=== PATIENT | female | born 1935 | race Caucasian/White ===

== ENCOUNTER 2017-09-06 18:22 | Emergency (ER) | payer OTHER, MEDICARE ==
--- NOTE | 2017-09-06 18:30 | PDOC ---
History of Present Illness - History of Present Illness Initial Comments: 09/06/17 18:49 The patient is a 82 year old female, with a significant past medical history of HTN, HLD, UTI's, hemorrhoids, sciatica, back, hip, & knee surgery, gastritis, and varicose veins, who presents to the emergency department with 3 days of right sided pelvic and buttox pain. Patient states that pain is exacerbated when walking and upon palpation and says it does not radiate to legs or back. Patient states she used a heating pad to try and relieve her pain. Patient denies any recent injury. She denies recent fevers, chills, headache or dizziness. She denies recent nausea, vomit, diarrhea or constipation. She denies recent dysuria, frequency, urgency or hematuria. She denies recent chest pain or shortness of breath. Allergies: NKDA Medications: see nursing notes 09/06/17 20:52 <Ruth Marcelino - Last Filed: 09/06/17 21:04> - History of Present Illness Initial Comments: Physical exam: Alert oriented well-developed well-nourished no acute distress cooperative Afebrile, vital signs normal HEENT clear Neck supple without bruit mass or nodes Chest clear CV regular without murmur rub or gallop Abdomen soft nontender without mass or organomegaly. Nondistended. Bowel sounds normal Neurological C2 to 12 intact. Strength full and symmetric. No focal sensory or motor deficits. Gait stable and unimpaired Skin clear, no rash, adequate turgor and wet mucous membranes Extremities: There is mild tenderness over the lateral hip joint on the right, and the pelvis in the buttock area. There is no erythema heat swelling or suggestion of effusion. Hip range of motion is full and it does not appear to be pain with external or internal rotation. Pulses are full and symmetric. No distal sensory or motor deficits. Impression: Although the patient reports no trauma, and inadvertent hip sprain is possible, as are flareup of arthritis. Plan: X-ray and further evaluation depending on results. Signed out to Dr. Zimmerman 7 PM pending x-ray results and further evaluation. <Laron Martinez - Last Filed: 09/08/17 07:33> - General Chief Complaint: Pain Stated Complaint: RIGHT HIP PAIN Time Seen by Provider: 09/06/17 18:23 Past History <Ruth Marcelino - Last Filed: 09/06/17 21:04> - Past Medical History Anemia: No Asthma: No Cancer: No Cardiac Disorders: No CVA: No COPD: No CHF: No Dementia: No Diabetes: No GI Disorders: Yes Disorders: No HTN: No Hypercholesterolemia: Yes Liver Disease: No Seizures: No Thyroid Disease: No - Surgical History Abdominal Surgery: No Appendectomy: No Cardiac Surgery: No Cholecystectomy: No Lung Surgery: No Neurologic Surgery: No Orthopedic Surgery: No - Immunization History Immunization Up to Date: Yes - Suicide/Smoking/Psychosocial Hx Smoking History: Never smoked Have you smoked in the past 12 months: No Hx Alcohol Use: No Drug/Substance Use Hx: No Substance Use Type: None Hx Substance Use Treatment: No <Laron Martinez - Last Filed: 09/08/17 07:33> - Past Medical History Allergies/Adverse Reactions: Allergies Allergy/AdvReac Type Severity Reaction Status Date / Time No Known Allergies Allergy Verified 09/06/17 18:24 Home Medications: Ambulatory Orders Alprazolam [Xanax] 0.25 mg PO BID 04/11/13 Atorvastatin Ca [Lipitor] 10 mg PO HS 04/11/13 Cholecalciferol (Vitamin D3) [Vitamin D3] 400 unit PO DAILY 04/11/13 Fish Oil/Fat No.8/Hrb Comb.137 [[place] 3-6-9 1,200 mg Softgel] 1,200 mg PO HS 02/16 Diphenhydramine HCl [Benadryl -] 25 mg PO Q6H PRN #20 capsule 03/14/16 Aspirin [ASA -] 81 mg PO DAILY 07/08/16 Sertraline HCl [Zoloft -] 25 mg PO DAILY 07/08/16 Amlodipine Besylate 5 mg PO DAILY 09/06/17 Hydrochlorothiazide [Hctz -] 12.5 mg PO DAILY 09/06/17 Hydroxyzine HCl [Atarax -] 25 mg PO BID 09/06/17 Meloxicam 15 mg PO DAILY 09/06/17 Omeprazole 20 mg PO BID 09/06/17 Tizanidine HCl [Zanaflex] 2 mg PO BID 09/06/17 Hyoscyamine Odt [Levsin Odt -] 0.125 mg PO DAILY PRN #7 tab.rapdis 09/07/17 Review of Systems - Review of Systems Comments:: 09/06/17 18:54 CONSTITUTIONAL: Absent: fever, chills, diaphoresis, generalized weakness, malaise, loss of appetite HEENT: Absent: rhinorrhea, nasal congestion, throat pain, throat swelling, difficulty swallowing, mouth swelling, ear pain, eye pain, visual Changes CARDIOVASCULAR: Absent: chest pain, syncope, palpitations, irregular heart rate, lightheadedness , peripheral edema RESPIRATORY: Absent: cough, shortness of breath, dyspnea with exertion, orthopnea, wheezing, stridor, hemoptysis GASTROINTESTINAL: Absent: abdominal pain, abdominal distension, nausea, vomiting, diarrhea, constipation, melena, hematochezia GENITOURINARY: Absent: dysuria, frequency, urgency, hesitancy, hematuria, flank pain, genital pain MUSCULOSKELETAL: Present right illiac crest and buttox pain. Absent: myalgia, SKIN: Absent: rash, itching, pallor HEMATOLOGIC/IMMUNOLOGIC: Absent: easy bleeding, easy bruising, lymphadenopathy, frequent infections ENDOCRINE: Absent: unexplained weight gain, unexplained weight loss, heat intolerance, cold intolerance NEUROLOGIC: Absent: headache, focal weakness or paresthesias, dizziness, unsteady gait, seizure, mental status changes, bladder or bowel incontinence PSYCHIATRIC: Absent: anxiety, depression, suicidal or homicidal ideation, hallucinations. 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 Prosthetic components articulate in the expected fashion. No acute fracture or dislocation is seen. Diffuse bony demineralization. <Ruth Marcelino - Last Filed: 09/06/17 21:04> - LABORATORY CBC & Chemistry Diagram: 09/06/17 19:10 09/06/17 19:10 <Laron Martinez - Last Filed: 09/08/17 07:33> *DC/Admit/Observation/Transfer - Attestations Scribe Attestion: 09/06/17 18:54 Documentation prepared by Ruth Marcelino, acting as medical reception specialist for Laron Ontiveros MD. <Ruth Marcelino - Last Filed: 09/06/17 21:04> <Laron Martinez - Last Filed: 09/08/17 07:33> Diagnosis at time of Disposition: Lower abdominal pain, Right hip pain - Discharge Dispostion Disposition: HOME Condition at time of disposition: Stable - Prescriptions Prescriptions: Hyoscyamine Odt [Levsin Odt -] 0.125 mg PO DAILY PRN #7 tab.rapdis PRN Reason: Moderate Pain - Referrals Referrals: Rosa Grijalva MD [Staff Physician] - 24 hours Han Ovalle [Non Staff, Medical] - Call tomorrow - Patient Instructions Printed Discharge Instructions: Irritable Bowel Syndrome Additional Instructions: Follow-up tomorrow with as previously scheduled Call Dr. Crawford's office tomorrow and make appointment for follow-up Tylenol as needed for pain Levsin ODT daily as needed for abdominal cramping
[2017-09-06 18:34] VITALS: TEMP 98; BMI 29.2
[2017-09-06 18:58] LABS: PH,URINE 5.5 (4.5-8); URINE APPEARANCE Clear; URINE BILIRUBIN Negative (NEGATIVE); URINE BLOOD Negative (NEGATIVE); URINE GLUCOSE (UA) Negative (NEGATIVE); URINE KETONE Negative (NEGATIVE); URINE NITRITE Negative (NEGATIVE); URINE PROTEIN Negative (NEGATIVE); URINE UROBILINOGEN 0.2 (0.2-1.0)
--- NOTE | 2017-09-06 19:10 | PDOC ---
*Physical Exam - Vital Signs Last Vital Signs Temp Pulse Resp BP Pulse Ox 98 F 95 H 20 149/91 100 09/06/17 18:23 09/06/17 18:23 09/06/17 18:23 09/06/17 18:23 09/06/17 18:23 ED Treatment Course - LABORATORY CBC & Chemistry Diagram: 09/06/17 19:10 09/06/17 19:10 Progress Note - Progress Note Progress Note: Care of this patient received from Dr. Bridges. Laboratory evaluation is essentially normal without evidence of leukocytosis, anemia or other abnormality of the CBC; likewise, chemistry profile shows no acute abnormality. Urinalysis shows small amount of red blood cells/white blood cells but also contains epithelial cells and mucus. No bacteria seen on the microscopic analysis. Right hip x-ray preliminary reading by Imaging professor of communication shows no evidence of fracture/dislocation; hardware appears intact and no other acute process present. Patient reexamined: She has some tenderness persistent in the right lower quadrant of the abdomen, cephalad to the right hip. Although this would be very atypical presentation of acute appendicitis or diverticulitis, since she is still in pain, CT of the abdomen and pelvis (noncontrast) was performed. No evidence of hydronephrosis/ureteronephrosis, ureteral stones, diverticulitis or appendicitis is present. No other significant abnormality seen on the CT scan. Results discussed with the patient. The patient states that the pain that she feels in her lower abdomen comes in waves and is "cramp-like". Because it was possible that she has irritable bowel syndrome (patient states that she is been under a tremendous amount of stress in recent months), she was given Levsin ODT 0.125 mg. Patient had some relief in her abdominal symptoms after this medication although she still had some hip pain. Patient has a history of gastritis and cannot take nonsteroidal anti-inflammatory medications. Patient will be discharged for follow-up tomorrow (already scheduled) with her digital media analyst, Dr. Grijalva. She should call her orthopedist, tomorrow to arrange follow-up for further evaluation of her right Hip pain *DC/Admit/Observation/Transfer Diagnosis at time of Disposition: Lower abdominal pain, Right hip pain - Discharge Dispostion Disposition: HOME Condition at time of disposition: Stable - Prescriptions Prescriptions: Hyoscyamine Odt [Levsin Odt -] 0.125 mg PO DAILY PRN #7 tab.rapdis PRN Reason: Moderate Pain - Referrals Referrals: Rosa Grijalva MD [Staff Physician] - 24 hours Han Ovalle [Non Staff, Medical] - Call tomorrow - Patient Instructions Printed Discharge Instructions: Irritable Bowel Syndrome Additional Instructions: Follow-up tomorrow with as previously scheduled Call Dr. rCawford's office tomorrow and make appointment for follow-up Tylenol as needed for pain Levsin ODT daily as needed for abdominal cramping - Post Discharge Activity
[2017-09-06 19:11] LABS: URINE COLOR YELLOW
[2017-09-06 19:25] LABS: BASO % 0.7 % (0-2.0); EOS % 0.8 % (0-4.5); HEMATOCRIT 43.7 % (32.4-45.2); HEMOGLOBIN 14.4 GM/dl (10.7-15.3); LYMPH % 17.8 % (8-40); MCH 31.3 pg (25.7-33.7); MEAN PLT VOLUME 9.5 fl (7.5-11.1); MONO % 6.6 % (3.8-10.2); NEUT % 74.1 % (42.8-82.8); PLATELET COUNT 252 K/MM3 (134-434); RDW 12.6 % (11.6-15.6); WHITE BLOOD COUNT 6.9 K/mm3 (4.0-10.8)
[2017-09-06 19:41] LABS: ALBUMIN 4.2 g/dl (3.5-5.0); ALK PHOS 80 U/L (32-92); ANION GAP 8 (8-16); BILIRUBIN,TOTAL 0.6 mg/dl (0.2-1.0); BLOOD UREA NITROGEN 14 mg/dl (7-18); CALCIUM 9.7 mg/dl (8.4-10.2); CHLORIDE 104 mmol/L (98-107); CO2 26 mmol/L (22-28); CREATININE 0.8 mg/dl (0.6-1.3); GLUCOSE,RANDOM 96 mg/dl (74-106); POTASSIUM 4.3 mmol/L (3.5-5.1); SGOT/AST 32 U/L (10-42); SGPT/ALT 25 U/L (10-40); SODIUM 138 mmol/L (136-145)
[2017-09-06 20:12] LABS: URINE MUCUS 1+; URINE RBC 0-3 /hpf (0-3)
[2017-09-06] MEDS ORDERED: ACETAMINOPHEN 325 MG TABLET (FP) PO ONE (20:55)
[2017-09-06] MEDS ORDERED: ACETAMINOPHEN 325 MG TABLET (FP) ONE (20:57)
[2017-09-06] MEDS ORDERED: HYOSCYAMINE SULFATE 0.125 MG *ODT ONE (23:53)
[2017-09-07 00:21] VITALS: BP 114/59; PULSE 84
== END 2017-09-07 00:27 | disposition home or self-care (01) ==
LOC: FER 18:22
DX: M25.551 Pain in right hip (principal); R10.30 Lower abdominal pain, unspecified; I10 Essential (primary) hypertension; E78.5 Hyperlipidemia, unspecified
CPT/HCPCS: 36415; 73523-TC; 74176; 80053; 81003; 81015; 85025; 87086; 99282-25

== ENCOUNTER 2018-08-19 00:02 | Emergency (ER) | payer OTHER, MEDICARE ==
[2018-08-19] MEDS ORDERED: ACETAMINOPHEN 325 MG TABLET (FP) PO ONE (00:07)
--- NOTE | 2018-08-19 00:07 | PDOC ---
History of Present Illness - General Chief Complaint: Injury Stated Complaint: INJURY Time Seen by Provider: 08/19/18 00:07 - History of Present Illness Initial Comments: 08/19/18 03:14 trip and fall landed on L knee and L buttock Timing/Duration: 1 hour, 1-3 hours Severity: moderate Modifying Factors: improves with: movement, rest Associated Symptoms: denies: chest pain, fever/chills, headaches, shortness of breath Past History - Past Medical History Allergies/Adverse Reactions: Allergies Allergy/AdvReac Type Severity Reaction Status Date / Time No Known Allergies Allergy Verified 03/19/18 00:27 Home Medications: Ambulatory Orders Alprazolam [Xanax] 0.25 mg PO BID 04/11/13 Atorvastatin Ca [Lipitor] 10 mg PO HS 04/11/13 Cholecalciferol (Vitamin D3) [Vitamin D3] 400 unit PO DAILY 04/11/13 Fish Oil/Fat No.8/Hrb Comb.137 [[place] 3-6-9 1,200 mg Softgel] 1,200 mg PO HS 02/16 Diphenhydramine HCl [Benadryl -] 25 mg PO Q6H PRN #20 capsule 03/14/16 Aspirin [ASA -] 81 mg PO DAILY 07/08/16 Sertraline HCl [Zoloft -] 25 mg PO DAILY 07/08/16 Amlodipine Besylate 5 mg PO DAILY 09/06/17 Hydrochlorothiazide [Hctz -] 12.5 mg PO DAILY 09/06/17 Meloxicam 15 mg PO DAILY 09/06/17 Omeprazole 20 mg PO BID 09/06/17 Tizanidine HCl [Zanaflex] 2 mg PO BID 09/06/17 hydrOXYzine HCL [Atarax -] 25 mg PO BID 09/06/17 Hyoscyamine Odt [Levsin Odt -] 0.125 mg PO DAILY PRN #7 tab.rapdis 09/07/17 Diphenhydramine HCl [Benadryl -] 25 mg PO Q8H #21 capsule 03/19/18 Anemia: No Asthma: No Cancer: No Cardiac Disorders: No CVA: No COPD: No CHF: No DVT: No Dementia: No Diabetes: No GI Disorders: Yes Disorders: No HTN: No Hypercholesterolemia: Yes Liver Disease: No Psychiatric Problems: Yes (ANXIETY) Seizures: No Thyroid Disease: No - Surgical History Abdominal Surgery: No Appendectomy: No Cardiac Surgery: No Cholecystectomy: No Lung Surgery: No Neurologic Surgery: No Orthopedic Surgery: No - Immunization History Immunization Up to Date: Yes - Suicide/Smoking/Psychosocial Hx Smoking History: Never smoked Have you smoked in the past 12 months: No Hx Alcohol Use: No Drug/Substance Use Hx: No Substance Use Type: None Hx Substance Use Treatment: No Review of Systems - Review of Systems All Other Systems: Reviewed and Negative *Physical Exam - Physical Exam General Appearance: Yes: Nourished, Appropriately Dressed HEENT: positive: Normal Voice Neck: negative: Tender Respiratory/Chest: positive: Lungs Clear Cardiovascular: positive: Regular Rhythm Gastrointestinal/Abdominal: negative: Tender, Distended Lymphatic: negative: Adenopathy Musculoskeletal: positive: Normal Inspection. negative: Decreased Range of Motion Extremity: positive: Other (tender over L buttock; no hip/ knee tenderness; + tender 2nd toe; nl gait) Integumentary: positive: Normal Color Neurologic: positive: Fully Oriented, Motor Strength 5/5 Medical Decision Making - Medical Decision Making 08/19/18 03:16 plain films: no fx, as read by me, referred to radiology for definitive read a/p msk pain s/p t+f analgesia *DC/Admit/Observation/Transfer Diagnosis at time of Disposition: Contusion Qualifiers: Encounter type: initial encounter Contusion area: pelvic area Qualified Code(s) : S30.0XXA - Contusion of lower back and pelvis, initial encounter - Discharge Dispostion Disposition: HOME Condition at time of disposition: Stable - Referrals - Patient Instructions Printed Discharge Instructions: How to Prevent Falls - Post Discharge Activity
[2018-08-19 00:08] VITALS: BP 152/87; PULSE 89; TEMP 97.7
[2018-08-19] MEDS ORDERED: ACETAMINOPHEN 325 MG TABLET (FP) ONE (00:10)
[2018-08-19 00:14] VITALS: BMI 27.8
[2018-08-19] MEDS ORDERED: oxyCODONE HCL 5 MG TABLET PO ONE (01:15)
== END 2018-08-19 01:21 | disposition home or self-care (01) ==
LOC: FER 00:02
DX: S30.0XXA Contusion of lower back and pelvis, initial encounter (principal); W01.0XXA Fall on same level from slipping, tripping and stumbling without subsequent striking against object, initial encounter; Y93.89 Activity, other specified; Y92.89 Other specified places as the place of occurrence of the external cause; F41.9 Anxiety disorder, unspecified; E78.00 Pure hypercholesterolemia, unspecified
CPT/HCPCS: 73523-TC-FY; 73560-TC-LT-FY; 73630-TC-LT; 99281-25

== ENCOUNTER 2018-08-22 13:59 | Emergency (ER) | payer OTHER, MEDICARE ==
[2018-08-22 14:19] VITALS: BP 137/83; PULSE 57; TEMP 97.6; BMI 25.8
--- NOTE | 2018-08-22 15:21 | PDOC ---
History of Present Illness - General Chief Complaint: Injury Stated Complaint: NOSE INJURY Time Seen by Provider: 08/22/18 15:11 - History of Present Illness Initial Comments: 08/22/18 15:19 83-year-old female with multiple comorbidities presents for evaluation of. She states she was given a cortisone shot in her left hip at her orthopedic surgeon' s office went to get up and hit her face into a counter she had bleeding from her nose which was controlled by pressure and packing and sent to the emergency room by ambulance for further evaluation. She denies headache nausea postinjury vomiting or visual changes was no loss of consciousness Past History - Past Medical History Allergies/Adverse Reactions: Allergies Allergy/AdvReac Type Severity Reaction Status Date / Time No Known Allergies Allergy Verified 03/19/18 00:27 Home Medications: Ambulatory Orders Alprazolam [Xanax] 0.25 mg PO BID 04/11/13 Atorvastatin Ca [Lipitor] 10 mg PO HS 04/11/13 Cholecalciferol (Vitamin D3) [Vitamin D3] 400 unit PO DAILY 04/11/13 Fish Oil/Fat No.8/Hrb Comb.137 [[place] 3-6-9 1,200 mg Softgel] 1,200 mg PO HS 02/16 Aspirin [ASA -] 81 mg PO DAILY 07/08/16 Sertraline HCl [Zoloft -] 25 mg PO DAILY 07/08/16 Amlodipine Besylate 5 mg PO DAILY 09/06/17 Hydrochlorothiazide [Hctz -] 12.5 mg PO DAILY 09/06/17 Tizanidine HCl [Zanaflex] 2 mg PO BID 09/06/17 hydrOXYzine HCL [Atarax -] 25 mg PO BID 09/06/17 Hyoscyamine Odt [Levsin Odt -] 0.125 mg PO DAILY PRN #7 tab.rapdis 09/07/17 Anemia: No Asthma: No Cancer: No Cardiac Disorders: No CVA: No COPD: No CHF: No DVT: No Dementia: No Diabetes: No GI Disorders: Yes Disorders: No HTN: No Hypercholesterolemia: Yes Liver Disease: No Psychiatric Problems: Yes (ANXIETY) Seizures: No Thyroid Disease: No - Surgical History Abdominal Surgery: No Appendectomy: No Cardiac Surgery: No Cholecystectomy: No Lung Surgery: No Neurologic Surgery: No Orthopedic Surgery: No - Immunization History Immunization Up to Date: Yes - Suicide/Smoking/Psychosocial Hx Smoking History: Never smoked Have you smoked in the past 12 months: No Information on smoking cessation initiated: No Hx Alcohol Use: No Drug/Substance Use Hx: No Substance Use Type: None Hx Substance Use Treatment: No Review of Systems - Review of Systems HEENTM: Yes: Nose Pain *Physical Exam - Vital Signs Last Vital Signs Temp Pulse Resp BP Pulse Ox 97.6 F 57 L 16 137/83 100 08/22/18 14:17 08/22/18 14:17 08/22/18 14:17 08/22/18 14:17 08/22/18 14:17 - Physical Exam Comments: 08/22/18 15:20 HEAD: NC/AT EYES: Conjuntiva clear Ears: Canals and TM's normal NOSE: Dried blood in naris THROAT: Moist mucous membrances, oral pharanx clear, uvula midline NECK: Supple without adenopathy CARDIAC: S1 S2 LUNGS: CTA Full and Equal breath sounds ABDOMEN: Soft NT ND MS: Full ROM in all joints without edema NEUROLOGIC: No gross sensory or motor deficits, NVID SKIN: Normal color and temperature no lesions or rashes Moderate Sedation - Procedure Monitoring Vital Signs: Procedure Monitoring Vital Signs Temperature 97.6 F 08/22/18 14:17 Pulse Rate 57 L 08/22/18 14:17 Respiratory Rate 16 08/22/18 14:17 Blood Pressure 137/83 08/22/18 14:17 O2 Sat by Pulse Oximetry (%) 100 08/22/18 14:17 ED Treatment Course - RADIOLOGY Radiology Studies Ordered: Category Date Time Status FACIAL BONES CT W/O CONTRAST [CT] Stat CT Scan 08/22/18 15:[address] WITHOUT CONTRAST [CT] Stat CT Scan 08/22/18 15:15 Ordered Medical Decision Making - Medical Decision Making 08/22/18 15:[address] head and facial bones, I explained 2nd fall in 1 week, on daily ASA, pt will have to sign out AMA discussed head bleed and potential adverse outcomes *DC/Admit/Observation/Transfer Diagnosis at time of Disposition: Contusion, nose - Discharge Dispostion Disposition: AGAINST MEDICAL ADVICE Condition at time of disposition: Stable - Referrals Referrals: Jose Stephenson MD [Primary Care Provider] - Vinay Holt MD [Staff Physician] - - Patient Instructions Printed Discharge Instructions: Contusion Additional Instructions: I did not appreciate a fracture under nasal x-ray today. I did recommend a CAT scan of your nasal bones and facial bones as well as her head. The reason I recommended a CAT scan of her head is because you are 83 years old, he take daily aspirin and this is her second fall in the last week. It's important to look at your brain to make sure there are no injuries that can be missed. A nasal contusion is distracting injury which can take away from a head trauma. You have refused a CAT scan, therefore you are signing out AGAINST MEDICAL ADVICE. Please return to the emergency room should you have any nausea vomiting or headaches. Please follow up with plastic surgery for further evaluation and treatment options of your nasal contusion. I cannot advise you to continue the aspirin because I am unsure what is going on inside her head without the CAT scan. - Post Discharge Activity
== END 2018-08-22 17:08 | disposition left against medical advice (07) ==
LOC: JERFT 13:59
DX: S00.33XA Contusion of nose, initial encounter (principal); W18.39XA Other fall on same level, initial encounter; Y93.89 Activity, other specified; Y92.531 Health care provider office as the place of occurrence of the external cause; E78.00 Pure hypercholesterolemia, unspecified; F41.9 Anxiety disorder, unspecified; K92.9 Disease of digestive system, unspecified
CPT/HCPCS: 70160-TC-FY; 70450-TC; 70486-TC; 99281-25

== ENCOUNTER 2020-12-19 10:55 | Inpatient (IN) | payer OTHER ==
[2020-12-19] MEDS ORDERED: MAG HYDROX/AL HYDROX/SIMETH 30 ML UNIT-DOSE CUP PO ONE (12:15)
[2020-12-19] MEDS ORDERED: FAMOTIDINE 20 MG/50 ML IVPB 20 MG/50 ML MG IVPB ONE ×2 (12:15→12:34)
[2020-12-19] MEDS ORDERED: MAG HYDROX/AL HYDROX/SIMETH 30 ML UNIT-DOSE CUP ONE (12:33)
[2020-12-19 12:45] LABS: BASO % 0.7 % (0-2.0); EOS % 0.4 % (0-4.5); HEMATOCRIT 41.7 % (32.4-45.2); HEMOGLOBIN 14.7 GM/dL (10.7-15.3); LYMPH % 18.4 % (8-40); MCH 33.3 pg (25.7-33.7); MCHC 35.3 g/dl (32.0-36.0); MEAN CELL VOLUME 94.4 fl (80-96); MEAN PLT VOLUME 8.9 fl (7.5-11.1); MONO % 6.5 % (3.8-10.2); PLATELET COUNT 273 K/MM3 (134-434); RBC 4.42 M/mm3 (3.60-5.2); RDW 14.3 % (11.6-15.6); WHITE BLOOD COUNT 8.7 K/mm3 (4.0-10.0)
[2020-12-19 13:08] LABS: CHLORIDE 102 mmol/L (98-107); SODIUM 139 mmol/L (136-145)
[2020-12-19 13:10] LABS: ANION GAP 6 MMOL/L (8-16); CALCIUM 9.8 mg/dL (8.5-10.1); CO2 31 mmol/L (21-32)
[2020-12-19 13:11] LABS: BLOOD UREA NITROGEN 12.5 mg/dL (7-18); GLUCOSE,RANDOM 100 mg/dL (74-106); LIPASE 100 U/L (73-393)
[2020-12-19 13:13] LABS: SGPT/ALT 38 U/L (13-61)
[2020-12-19 13:14] LABS: CREATININE 0.9 mg/dL (0.55-1.3); SGOT/AST 33 U/L (15-37)
[2020-12-19 13:15] LABS: BILIRUBIN,TOTAL 0.8 mg/dL (0.2-1)
[2020-12-19 13:16] LABS: ALK PHOS 88 U/L (45-117)
[2020-12-19 13:19] LABS: N-TERMINAL BNP 26.8 pg/ml (5-450)
[2020-12-19] MEDS ORDERED: POTASSIUM CHLORIDE ORAL LIQUID 20 MEQ/15 ML PO ONE (13:35)
[2020-12-19] MEDS ORDERED: SODIUM CHLORIDE 0.9% 500 ML INFUS.BAG IV ONE (13:35)
[2020-12-19] MEDS ORDERED: ACETAMINOPHEN 1000 MG/100 ML VIAL (NON FORMULARY) IVPB ONE (13:36)
[2020-12-19] MEDS ORDERED: POTASSIUM CHLORIDE TABS 20 MEQ TABLET.ER (FP) PO ONE (13:43)
[2020-12-19] MEDS ORDERED: ACETAMINOPHEN INJECTION 100 ML IVPB ONE (13:43)
[2020-12-19] MEDS ORDERED: LIDOCAINE VISCOUS 2% ORAL/TOP 20 ML UNIT-DOSE CUP MM ONE ×2 (15:29→16:33)
[2020-12-19] MEDS ORDERED: METOCLOPRAMIDE HCL INJECTION 10 MG/2 ML VIAL IVPUSH ONE (15:29)
[2020-12-19] MEDS ORDERED: LIDOCAINE VISCOUS 2% ORAL/TOP 20 ML UNIT-DOSE CUP ONE ×2 (15:40→16:38)
[2020-12-19] MEDS ORDERED: METOCLOPRAMIDE HCL INJECTION 10 MG/2 ML VIAL ONE (15:40)
[2020-12-19] MEDS ORDERED: DICYCLOMINE HCL 20 MG TABLET PO ONE (16:33)
[2020-12-19] MEDS ORDERED: SUCRALFATE 1 GM TABLET (FP) PO ONE (16:33)
[2020-12-19] MEDS ORDERED: DICYCLOMINE HCL 10 MG CAPSULE ONE (16:38)
[2020-12-19] MEDS ORDERED: SUCRALFATE 1 GM TABLET (FP) ONE (16:39)
[2020-12-19 18:03] LABS: PH,URINE 6.5 (5.0-8.0); URINE APPEARANCE CLOUDY; URINE BILIRUBIN NEGATIVE (NEGATIVE); URINE COLOR YELLOW; URINE GLUCOSE (UA) NEGATIVE (NEGATIVE); URINE KETONE NEGATIVE (NEGATIVE); URINE LEUK ESTERASE NEGATIVE (NEGATIVE); URINE NITRITE NEGATIVE (NEGATIVE); URINE PROTEIN NEGATIVE (NEGATIVE); URINE UROBILINOGEN 0.2 mg/dL (0.2-1.0)
[2020-12-19] MEDS ORDERED: ACETAMINOPHEN 325 MG TABLET (FP) PO PRN (18:04)
[2020-12-19] MEDS ORDERED: ENOXAPARIN NA (PORCINE) 40 MG/0.4 ML DISP.SYRIN SQ SCH (18:15)
[2020-12-19] MEDS ORDERED: SERTRALINE HCL 25 MG TABLET (FP) PO SCH (18:15)
[2020-12-19] MEDS ORDERED: SODIUM CHLORIDE 1,000 ML IV SCH (18:15)
[2020-12-19] MEDS ORDERED: amLODIPine BESYLATE 5 MG TABLET (FP) PO SCH (18:15)
[2020-12-19] MEDS ORDERED: HYDROCHLOROTHIAZIDE 12.5 MG CAPSULE (FP) PO SCH (18:15)
[2020-12-19] MEDS ORDERED: amLODIPine BESYLATE 5 MG TABLET (FP) ONE (18:40)
[2020-12-19] MEDS ORDERED: HYDROCHLOROTHIAZIDE 25 MG TABLET (FP) ONE (18:40)
[2020-12-19] MEDS ORDERED: ENOXAPARIN NA (PORCINE) 40 MG/0.4 ML DISP.SYRIN SQ ONE (18:40)
[2020-12-19] MEDS ORDERED: ALPRAZolam 0.25 MG TABLET PO SCH (22:00)
[2020-12-19] MEDS ORDERED: ATORVASTATIN CA 10 MG TABLET (FP) PO SCH (22:00)
[2020-12-19] MEDS ORDERED: PANTOPRAZOLE SODIUM 40 MG VIAL IVPUSH SCH (22:00)
[2020-12-20 02:41] VITALS: BMI 26.0
[2020-12-20] MEDS ORDERED: ACETAMINOPHEN 325 MG TABLET (FP) PO PRN (08:36)
[2020-12-20] MEDS ORDERED: SODIUM CHLORIDE 1,000 ML IV SCH (08:36)
[2020-12-20 08:55] LABS: BASO % 0.6 % (0-2.0); EOS % 1.9 % (0-4.5); HEMOGLOBIN 13.8 GM/dL (10.7-15.3); LYMPH % 23.1 % (8-40); MCH 33.6 pg (25.7-33.7); MCHC 35.4 g/dl (32.0-36.0); MEAN CELL VOLUME 94.9 fl (80-96); MEAN PLT VOLUME 9.3 fl (7.5-11.1); MONO % 6.5 % (3.8-10.2); NEUT % 67.9 % (42.8-82.8); PLATELET COUNT 218 K/MM3 (134-434); RBC 4.11 M/mm3 (3.60-5.2); RDW 14.1 % (11.6-15.6)
[2020-12-20 09:11] LABS: CALCIUM 8.9 mg/dL (8.5-10.1)
[2020-12-20 09:12] LABS: ALBUMIN 3.5 g/dl (3.4-5.0); BLOOD UREA NITROGEN 8.8 mg/dL (7-18); MAGNESIUM 1.9 mg/dL (1.8-2.4)
[2020-12-20 09:15] LABS: CREATININE 0.8 mg/dL (0.55-1.3); PHOSPHOROUS 2.6 mg/dL (2.5-4.9)
[2020-12-20 09:16] LABS: BILIRUBIN,TOTAL 0.8 mg/dL (0.2-1)
[2020-12-20] MEDS: SUCRALFATE 1 GM/10 ML UNIT DOSE CUPS PO SCH ×2 (09:57→15:00)
[2020-12-20] MEDS ORDERED: SERTRALINE HCL 25 MG TABLET (FP) PO SCH (10:00)
[2020-12-20] MEDS: ALPRAZolam 0.25 MG TABLET PO SCH ×2 (10:00→11:50)
[2020-12-20] MEDS ORDERED: HYDROCHLOROTHIAZIDE 12.5 MG CAPSULE (FP) PO SCH (10:00)
[2020-12-20] MEDS ORDERED: PANTOPRAZOLE SODIUM 40 MG VIAL IVPUSH SCH (10:00)
[2020-12-20] MEDS ORDERED: ENOXAPARIN NA (PORCINE) 40 MG/0.4 ML DISP.SYRIN SQ SCH (10:00)
[2020-12-20] MEDS ORDERED: amLODIPine BESYLATE 5 MG TABLET (FP) PO SCH (10:00)
[2020-12-20 13:59] VITALS: BP 133/61; PULSE 70; TEMP 99
[2020-12-20] MEDS ORDERED: ATORVASTATIN CA 10 MG TABLET (FP) PO SCH (22:00)
== END 2020-12-20 15:58 | disposition home or self-care (01) | DRG 392 ==
LOC: JER 10:55 → JERBED 16:48 → J6S 23:28
PROVIDERS: ATTEND Student in an Organized Health Care Education/Training Program
PROC: 0DB78ZX Excision of Stomach, Pylorus, Via Natural or Artificial Opening Endoscopic, Diagnostic (ICD-10-PCS; 2020-12-20)
PROC: 0DB68ZX Excision of Stomach, Via Natural or Artificial Opening Endoscopic, Diagnostic (ICD-10-PCS; 2020-12-20)
PROC: 0DB58ZX Excision of Esophagus, Via Natural or Artificial Opening Endoscopic, Diagnostic (ICD-10-PCS; 2020-12-20)
PROC: 0DB98ZX Excision of Duodenum, Via Natural or Artificial Opening Endoscopic, Diagnostic (ICD-10-PCS; principal; 2020-12-20 07:30)
DX: K29.50 Unspecified chronic gastritis without bleeding (principal); K27.9 Peptic ulcer, site unspecified, unspecified as acute or chronic, without hemorrhage or perforation; I10 Essential (primary) hypertension; E78.5 Hyperlipidemia, unspecified; E87.6 Hypokalemia; R10.13 Epigastric pain; K21.9 Gastro-esophageal reflux disease without esophagitis; F41.8 Other specified anxiety disorders; G47.00 Insomnia, unspecified
CPT/HCPCS: 36415; 74177-TC; 80053; 81003; 82550; 83605; 83690; 83735; 83880; 84100; 84484; 85025; 86850; 86900; 86901; 87086; 88305-TC; 93005; 93010; 99285-25; C9803; J0131; Q9967; U0003; U0005

== ENCOUNTER 2021-04-06 03:12 | Emergency (ER) | payer OTHER ==
[2021-04-06 03:26] VITALS: TEMP 98.4; BMI 23.8
[2021-04-06] MEDS ORDERED: MAG HYDROX/AL HYDROX/SIMETH 30 ML UNIT-DOSE CUP PO ONE (04:15)
[2021-04-06] MEDS ORDERED: FAMOTIDINE 20 MG/50 ML IVPB 20 MG/50 ML MG IVPB ONE ×2 (04:16→04:21)
[2021-04-06] MEDS ORDERED: MAG HYDROX/AL HYDROX/SIMETH 30 ML UNIT-DOSE CUP ONE (04:21)
[2021-04-06] MEDS ORDERED: SUCRALFATE 1 GM/10 ML UNIT DOSE CUPS PO ONE (04:23)
[2021-04-06 04:51] LABS: BASO % 0.7 % (0-2.0); EOS % 1.8 % (0-4.5); HEMATOCRIT 39.8 % (32.4-45.2); HEMOGLOBIN 14.1 GM/dL (10.7-15.3); MCH 33.3 pg (25.7-33.7); MCHC 35.4 g/dl (32.0-36.0); MONO % 6.7 % (3.8-10.2); NEUT % 65.8 % (42.8-82.8); PLATELET COUNT 229 10^3/uL (134-434); RBC 4.23 M/mm3 (3.60-5.2); WHITE BLOOD COUNT 9.3 K/mm3 (4.0-10.0)
[2021-04-06] MEDS ORDERED: morphine CARPU-JECT 2 MG/1 ML DISP.SYRIN IVPUSH ONE (04:54)
[2021-04-06] MEDS ORDERED: MORPHINE SULFATE 2 MG/ML VIAL ONE (05:04)
[2021-04-06 05:10] LABS: ALBUMIN 3.8 g/dl (3.4-5.0); CALCIUM 8.7 mg/dL (8.5-10.1)
[2021-04-06 05:13] LABS: CREATININE 1.1 mg/dL (0.55-1.3)
[2021-04-06 05:15] LABS: BILIRUBIN,TOTAL 0.6 mg/dL (0.2-1); TOT PROT 7.5 g/dl (6.4-8.2)
[2021-04-06] MEDS ORDERED: POTASSIUM CHLORIDE TABS 20 MEQ TABLET.ER (FP) PO ONE ×2 (05:23→05:37)
[2021-04-06 06:01] VITALS: BP 114/74; PULSE 60
== END 2021-04-06 06:04 | disposition home or self-care (01) ==
LOC: JER 03:12
PROC: 3E033GC Introduction of Other Therapeutic Substance into Peripheral Vein, Percutaneous Approach (ICD-10-PCS; principal; 2021-04-06)
DX: R10.13 Epigastric pain (principal)
CPT/HCPCS: 36415; 80053; 82272; 85025; 93005; 93010; 99284-25

== ENCOUNTER 2021-09-04 23:52 | Emergency (ER) | payer OTHER ==
[2021-09-05 00:01] VITALS: BP 126/69; PULSE 105; TEMP 100.2; BMI 28.0
[2021-09-05] MEDS ORDERED: DIPHENOXYLATE 2.5/ATROPINE.025 1 COMBO TABLET PO ONE (00:42)
[2021-09-05] MEDS ORDERED: LOPERAMIDE HCL 2 MG CAPSULE PO ONE (00:44)
[2021-09-05] MEDS ORDERED: LOPERAMIDE HCL 2 MG CAPSULE ONE (00:52)
[2021-09-05] MEDS ORDERED: ACETAMINOPHEN 325 MG TABLET (FP) ONE (02:01)
[2021-09-05] MEDS ORDERED: ACETAMINOPHEN 325 MG TABLET (FP) PO ONE (02:01)
== END 2021-09-05 02:19 | disposition home or self-care (01) ==
LOC: FER 23:52
DX: T36.95XA Adverse effect of unspecified systemic antibiotic, initial encounter (principal)
CPT/HCPCS: 99283-25

== ENCOUNTER 2021-09-11 19:00 | Emergency (ER) | payer OTHER ==
[2021-09-11 20:08] VITALS: BP 154/80; PULSE 78; TEMP 98.4; BMI 27.4
[2021-09-11] MEDS ORDERED: ACETAMINOPHEN 325 MG TABLET (FP) PO ONE (21:24)
[2021-09-11] MEDS ORDERED: ACETAMINOPHEN 325 MG TABLET (FP) ONE (21:29)
[2021-09-11 21:43] LABS: ALBUMIN 3.9 g/dl (3.4-5.0); BILIRUBIN,TOTAL 0.6 mg/dl (0.2-1); CALCIUM 9.5 mg/dl (8.5-10); CREATININE 0.8 mg/dl (0.55-1.3); TOT PROT 7.5 g/dl (6.4-8.2)
[2021-09-11 22:02] LABS: HEMOGLOBIN 14.5 GM/dL (10.7-15.3); MCH 31.9 pg (25.7-33.7); MCHC 33.8 g/dl (32.0-36.0); MEAN CELL VOLUME 94.5 fl (80-96); MEAN PLT VOLUME 8.4 fl (7.5-11.1); PLATELET COUNT 208 10^3/uL (134-434); RBC 4.55 M/mm3 (3.60-5.2); RDW 13.2 % (11.6-15.6); WHITE BLOOD COUNT 4.2 K/mm3 (4.0-10.0)
== END 2021-09-11 22:49 | disposition home or self-care (01) ==
LOC: FER 19:00
DX: R05.9 Cough, unspecified (principal)
CPT/HCPCS: 36415; 71045-TC-FY; 80053; 83690; 85027; 93005; 99285-25

== ENCOUNTER 2022-08-17 21:30 | Emergency (ER) | payer BC ==
[2022-08-17 21:51] VITALS: BP 130/82; PULSE 84; RESP 18; TEMP 97.5; BMI 27.2
[2022-08-18] MEDS ORDERED: ACETAMINOPHEN 500 MG TABLET (FP) ONE (01:47)
[2022-08-18] MEDS ORDERED: ACETAMINOPHEN 500 MG TABLET (FP) PO ONE (01:48)
== END 2022-08-18 01:54 | disposition home or self-care (01) ==
LOC: FER 21:30
DX: S73.102A Unspecified sprain of left hip, initial encounter (principal); W19.XXXA Unspecified fall, initial encounter
CPT/HCPCS: 72170-TC-FY; 73502-TC-LT-FY; 73700-TC-RT; 99284-25

== ENCOUNTER 2023-10-08 03:49 | Day surgery (SDC) | payer OTHER ==
[2023-10-01 16:10] VITALS: BMI 27.4
[2023-10-08] MEDS ORDERED: BUPIVACAINE HCL/PF 0.75% 10 ML VIAL ONE (07:22)
[2023-10-08] MEDS ORDERED: LIDOCAINE HCL/PF 1% SDV 5ML VIAL ONE (07:22)
[2023-10-08 10:41] VITALS: RESP 18
[2023-10-08] MEDS: BUPIVACAINE HCL/PF 0.75% 10 ML VIAL NR ONE ×3 (11:06→11:11)
[2023-10-08] MEDS: LIDOCAINE 1% P/F 10 MG/ML VIAL INF ONE (11:07)
[2023-10-08 11:27] VITALS: BP 121/66; PULSE 71; TEMP 97.4
[2023-10-08] MEDS ORDERED: ACETAMINOPHEN 500 MG TABLET (FP) PO PRN (13:56)
== END 2023-10-08 12:32 | disposition home or self-care (01) ==
LOC: JASU-SURG 03:49
PROVIDERS: ATTEND Pain Medicine Pain Medicine
PROC: 3E0T33Z Introduction of Anti-inflammatory into Peripheral Nerves and Plexi, Percutaneous Approach (ICD-10-PCS; 2023-10-08)
PROC: 3E0T3BZ Introduction of Anesthetic Agent into Peripheral Nerves and Plexi, Percutaneous Approach (ICD-10-PCS; principal; 2023-10-08 11:45)
DX: M47.816 Spondylosis without myelopathy or radiculopathy, lumbar region (principal)
CPT/HCPCS: 76000-TC-FY

== ENCOUNTER 2023-10-29 03:48 | Day surgery (SDC) | payer OTHER ==
[2023-10-22 15:40] VITALS: BMI 27.4
[2023-10-29] MEDS ORDERED: BUPIVACAINE HCL/PF 0.75% 10 ML VIAL ONE (07:26)
[2023-10-29] MEDS ORDERED: LIDOCAINE HCL/PF 1% SDV 5ML VIAL ONE (11:32)
[2023-10-29 11:36] VITALS: RESP 18
[2023-10-29] MEDS: LIDOCAINE HCL 1% PRESERVATIVE FREE - 30ML VIAL IJ ONE (12:02)
[2023-10-29] MEDS: BUPIVACAINE HCL/PF 0.75% 10 ML VIAL NR ONE (12:02)
[2023-10-29 13:19] VITALS: BP 117/60; PULSE 76; TEMP 98
== END 2023-10-29 14:14 | disposition home or self-care (01) ==
LOC: JASU-SURG 03:48
PROVIDERS: ATTEND Pain Medicine Pain Medicine
PROC: 3E0T33Z Introduction of Anti-inflammatory into Peripheral Nerves and Plexi, Percutaneous Approach (ICD-10-PCS; 2023-10-29)
PROC: 3E0T3BZ Introduction of Anesthetic Agent into Peripheral Nerves and Plexi, Percutaneous Approach (ICD-10-PCS; principal; 2023-10-29 12:45)
DX: M47.816 Spondylosis without myelopathy or radiculopathy, lumbar region (principal)
CPT/HCPCS: 76000-TC-FY

== ENCOUNTER 2023-11-23 05:20 | Day surgery (SDC) | payer OTHER ==
[2023-11-18 11:03] VITALS: BMI 27.4
[2023-11-23] MEDS ORDERED: BUPIVACAINE HCL/PF 0.75% 10 ML VIAL ONE (07:26)
[2023-11-23] MEDS ORDERED: LIDOCAINE HCL/PF 2% SDV 5ML VIAL ONE (07:26)
[2023-11-23] MEDS ORDERED: LIDOCAINE HCL/PF 1% SDV 5ML VIAL ONE (07:27)
[2023-11-23 11:03] VITALS: RESP 20
[2023-11-23] MEDS: LIDOCAINE HCL 1% PRESERVATIVE FREE - 30ML VIAL IJ ONE (12:36)
[2023-11-23] MEDS: LIDOCAINE HCL/PF 2% SDV 5ML VIAL INF ONE (12:36)
[2023-11-23] MEDS: BUPIVACAINE HCL/PF 0.75% 10 ML VIAL NR ONE (12:38)
[2023-11-23] MEDS: DEXAMETHASONE SOD PHOSPHATE 10 MG/1 ML VIAL IVPUSH ONE (12:38)
[2023-11-23] MEDS ORDERED: ACETAMINOPHEN 500 MG TABLET (FP) PO PRN (13:14)
[2023-11-23 13:25] VITALS: BP 142/70; PULSE 69; TEMP 98
== END 2023-11-23 14:31 | disposition home or self-care (01) ==
LOC: JASU-SURG 05:20
PROVIDERS: ATTEND Pain Medicine Pain Medicine
PROC: 015B3ZZ Destruction of Lumbar Nerve, Percutaneous Approach (ICD-10-PCS; principal; 2023-11-23 12:15)
DX: M47.816 Spondylosis without myelopathy or radiculopathy, lumbar region (principal)
CPT/HCPCS: 76000-TC-FY; J1100

== ENCOUNTER 2023-11-25 17:19 | Inpatient (IN) | payer OTHER ==
[2023-11-25] MEDS ORDERED: ACETAMINOPHEN INJECTION 100 ML IVPB ONE (19:34)
[2023-11-25 19:38] LABS: BASO % 0.5 % (0-2.0); EOS % 0.5 % (0-4.5); HEMATOCRIT 38.1 % (32.4-45.2); LYMPH % 18.8 % (8-40); MCH 32.8 pg (25.7-33.7); MCHC 34.1 g/dl (32.0-36.0); MEAN PLT VOLUME 9.1 fl (7.5-11.1); MONO % 7.9 % (3.8-10.2); NEUT % 72.3 % (42.8-82.8); PLATELET COUNT 226 10^3/uL (134-434); RBC 3.97 M/mm3 (3.60-5.2); RDW 13.7 % (11.6-15.6); WHITE BLOOD COUNT 13.4 K/mm3 (4.0-10.0)
[2023-11-25 19:45] LABS: INR 1.08 (0.83-1.09); PROTHROMBIN TIME (PATIENT) 12.5 SEC (9.7-13.0)
[2023-11-25] MEDS: ACETAMINOPHEN 1000 MG/100 ML BAG IVPB ONE (19:50)
[2023-11-25] MEDS: SODIUM CHLORIDE 0.9% 500 ML INFUS.BAG IV ONE (19:50)
[2023-11-25 19:54] LABS: POTASSIUM 3.7 mmol/L (3.5-5.1)
[2023-11-25 19:57] LABS: ALBUMIN 3.3 g/dl (3.4-5.0); BLOOD UREA NITROGEN 21.7 mg/dL (7-18)
[2023-11-25 20:00] LABS: CREATININE 0.9 mg/dL (0.55-1.3)
[2023-11-25 20:02] LABS: BILIRUBIN,TOTAL 0.4 mg/dL (0.2-1); TOT PROT 6.8 g/dl (6.4-8.2)
[2023-11-25] MEDS ORDERED: ASPIRIN 81 MG CHEWABLE TABLETS ONE (20:35)
[2023-11-25] MEDS: ASPIRIN 81 MG CHEWABLE TABLETS PO ONE (20:48)
[2023-11-25 21:36] LABS: URINE APPEARANCE CLEAR; URINE BILIRUBIN NEGATIVE (NEGATIVE); URINE COLOR YELLOW; URINE GLUCOSE (UA) NEGATIVE (NEGATIVE); URINE KETONE NEGATIVE (NEGATIVE); URINE LEUK ESTERASE NEGATIVE (NEGATIVE); URINE NITRITE NEGATIVE (NEGATIVE); URINE PROTEIN NEGATIVE (NEGATIVE)
[2023-11-26] MEDS: ALPRAZolam 0.25 MG TABLET PO PRN (00:25)
[2023-11-26 00:48] VITALS: BMI 29.2
[2023-11-26 03:37] LABS: BASO % 0.5 % (0-2.0); EOS % 1.4 % (0-4.5); HEMATOCRIT 36.5 % (32.4-45.2); HEMOGLOBIN 12.8 GM/dL (10.7-15.3); LYMPH % 26.1 % (8-40); MCH 33.5 pg (25.7-33.7); MCHC 35.2 g/dl (32.0-36.0); MEAN CELL VOLUME 95.3 fl (80-96); MEAN PLT VOLUME 9.2 fl (7.5-11.1); MONO % 7.6 % (3.8-10.2); NEUT % 64.4 % (42.8-82.8); PLATELET COUNT 216 10^3/uL (134-434); RBC 3.83 M/mm3 (3.60-5.2); RDW 13.4 % (11.6-15.6); WHITE BLOOD COUNT 9.1 K/mm3 (4.0-10.0)
[2023-11-26 07:11] LABS: BASO % 0.6 % (0-2.0); HEMATOCRIT 35.5 % (32.4-45.2); HEMOGLOBIN 12.2 GM/dL (10.7-15.3); LYMPH % 29.6 % (8-40); MCH 32.9 pg (25.7-33.7); MCHC 34.4 g/dl (32.0-36.0); MEAN CELL VOLUME 95.6 fl (80-96); MEAN PLT VOLUME 8.9 fl (7.5-11.1); MONO % 7.7 % (3.8-10.2); NEUT % 60.1 % (42.8-82.8); PLATELET COUNT 200 10^3/uL (134-434); RBC 3.72 M/mm3 (3.60-5.2); RDW 13.6 % (11.6-15.6); WHITE BLOOD COUNT 8.3 K/mm3 (4.0-10.0)
[2023-11-26 07:28] LABS: CALCIUM 8.7 mg/dL (8.5-10.1)
[2023-11-26 07:29] LABS: ALBUMIN 2.9 g/dl (3.4-5.0); BLOOD UREA NITROGEN 16.2 mg/dL (7-18); MAGNESIUM 1.8 mg/dL (1.8-2.4)
[2023-11-26 07:32] LABS: CHOLESTEROL 139 mg/dL (50-200); CREATININE 0.8 mg/dL (0.55-1.3); PHOSPHOROUS 3.5 mg/dL (2.5-4.9)
[2023-11-26 07:33] LABS: BILIRUBIN,TOTAL 0.5 mg/dL (0.2-1); LDL CHOLESTEROL (ONLY SJRH) 66 mg/dL (5-100)
[2023-11-26 07:34] LABS: TOT PROT 6.2 g/dl (6.4-8.2)
[2023-11-26 07:35] LABS: HDL CHOLESTEROL 58 mg/dL (40-60)
[2023-11-26] MEDS: ASPIRIN COATED 81 MG TABLET.EC PO SCH (09:40)
[2023-11-26] MEDS: CLOPIDOGREL BISULFATE 75 MG TABLET (FP) PO SCH (09:40)
[2023-11-26] MEDS: ENOXAPARIN NA (PORCINE) 80 MG/0.8 ML DISP.SYRIN SQ SCH (09:40)
[2023-11-26] MEDS: PANTOPRAZOLE 40 MG TABLET PO SCH (09:40)
[2023-11-26] MEDS ORDERED: ENOXAPARIN NA (PORCINE) 40 MG/0.4 ML DISP.SYRIN SQ SCH (10:00)
[2023-11-26] MEDS: ALPRAZolam 0.25 MG TABLET PO SCH (10:10)
[2023-11-26] MEDS ORDERED: VENLAFAXINE HCL 37.5 MG E.R. CAPSULE PO SCH (11:14)
[2023-11-26] MEDS: VENLAFAXINE HCL 37.5 MG TABLET PO SCH (12:16)
[2023-11-26] MEDS: VENLAFAXINE HCL 37.5 MG E.R. CAPSULE PO SCH (12:19)
[2023-11-26] MEDS: ATORVASTATIN CA 40 MG TABLET (FP) PO SCH (21:59)
[2023-11-26] MEDS ORDERED: ATORVASTATIN CA 10 MG TABLET (FP) PO SCH (22:00)
[2023-11-27] MEDS: MAG HYDROX/AL HYDROX/SIMETH 30 ML UNIT-DOSE CUP PO PRN (09:42)
[2023-11-28] MEDS ORDERED: MAG HYDROX/AL HYDROX/SIMETH 30 ML UNIT-DOSE CUP PO SCH (10:00)
[2023-11-28] MEDS: SODIUM BICARBONATE 325 MG TABLET PO SCH (16:01)
[2023-11-28] MEDS: metoPROLOL SUCCINATE 25 MG TAB.SR.24H (FP) PO SCH (16:01)
[2023-11-29 07:38] LABS: BASO % 0.4 % (0-2.0); EOS % 1.3 % (0-4.5); HEMATOCRIT 36.4 % (32.4-45.2); HEMOGLOBIN 12.8 GM/dL (10.7-15.3); LYMPH % 14.9 % (8-40); MCH 33.7 pg (25.7-33.7); MCHC 35.2 g/dl (32.0-36.0); MEAN CELL VOLUME 95.6 fl (80-96); MEAN PLT VOLUME 9.5 fl (7.5-11.1); MONO % 11.9 % (3.8-10.2); NEUT % 71.5 % (42.8-82.8); PLATELET COUNT 202 10^3/uL (134-434); RDW 13.4 % (11.6-15.6); WHITE BLOOD COUNT 10.7 K/mm3 (4.0-10.0)
[2023-11-29 07:49] LABS: POTASSIUM 3.9 mmol/L (3.5-5.1)
[2023-11-29 07:51] LABS: CALCIUM 8.4 mg/dL (8.5-10.1)
[2023-11-29 07:52] LABS: ALBUMIN 2.9 g/dl (3.4-5.0); BLOOD UREA NITROGEN 15.6 mg/dL (7-18); MAGNESIUM 1.6 mg/dL (1.8-2.4)
[2023-11-29 07:55] LABS: CREATININE 0.9 mg/dL (0.55-1.3)
[2023-11-29 07:56] LABS: PHOSPHOROUS 3.1 mg/dL (2.5-4.9); TOT PROT 6.4 g/dl (6.4-8.2)
[2023-11-29 23:56] LABS: URINE APPEARANCE CLEAR; URINE BILIRUBIN NEGATIVE (NEGATIVE); URINE COLOR YELLOW; URINE GLUCOSE (UA) NEGATIVE (NEGATIVE); URINE KETONE NEGATIVE (NEGATIVE); URINE LEUK ESTERASE NEGATIVE (NEGATIVE); URINE NITRITE NEGATIVE (NEGATIVE); URINE PROTEIN NEGATIVE (NEGATIVE)
[2023-11-30 07:21] LABS: BASO % 0.3 % (0-2.0); EOS % 1.3 % (0-4.5); HEMATOCRIT 36.3 % (32.4-45.2); HEMOGLOBIN 12.2 GM/dL (10.7-15.3); LYMPH % 17.1 % (8-40); MCH 32.6 pg (25.7-33.7); MCHC 33.6 g/dl (32.0-36.0); MEAN PLT VOLUME 9.2 fl (7.5-11.1); MONO % 12.5 % (3.8-10.2); NEUT % 68.8 % (42.8-82.8); PLATELET COUNT 194 10^3/uL (134-434); RBC 3.75 M/mm3 (3.60-5.2); RDW 13.2 % (11.6-15.6)
[2023-11-30 07:41] LABS: ALBUMIN 2.9 g/dl (3.4-5.0); BLOOD UREA NITROGEN 17.5 mg/dL (7-18); POTASSIUM 4.1 mmol/L (3.5-5.1)
[2023-11-30 07:42] LABS: CALCIUM 8.5 mg/dL (8.5-10.1); MAGNESIUM 1.7 mg/dL (1.8-2.4)
[2023-11-30 07:44] LABS: CREATININE 0.9 mg/dL (0.55-1.3); PHOSPHOROUS 3.2 mg/dL (2.5-4.9)
[2023-11-30 07:46] LABS: TOT PROT 6.3 g/dl (6.4-8.2)
[2023-11-30 09:19] LABS: N-TERMINAL BNP 200.3 pg/ml (5-450)
[2023-11-30] MEDS: MAGNESIUM SULF 50% (8.12 MEQ/2 ML-1 GM VIAL) IVPB ONE (09:51)
[2023-11-30] MEDS: MAGNESIUM OXIDE 400 MG TABLET (FP) PO ONE (09:52)
[2023-11-30 11:03] VITALS: RESP 18
[2023-11-30 15:31] VITALS: BP 128/90; PULSE 83
[2023-11-30 16:12] VITALS: TEMP 98.8
[2023-11-30] MEDS: MAG HYDROX/AL HYDROX/SIMETH 30 ML UNIT-DOSE CUP PO PRN (16:29)
== END 2023-11-30 17:05 | disposition short-term general hospital (02) | DRG 282 ==
LOC: JER 17:19 → JERBED 20:22 → J4W 11-26 00:23 → OBSVTOIN 11-28 17:19
PROVIDERS: ADMIT Internal Medicine; ATTEND Internal Medicine
DX: I21.4 Non-ST elevation (NSTEMI) myocardial infarction (principal); K21.9 Gastro-esophageal reflux disease without esophagitis; I10 Essential (primary) hypertension; E78.5 Hyperlipidemia, unspecified; R55 Syncope and collapse; F41.9 Anxiety disorder, unspecified; K64.8 Other hemorrhoids; M54.30 Sciatica, unspecified side
CPT/HCPCS: 0241U-QW; 36415; 71045-TC-FY; 80053; 80061; 81003; 82962; 83690; 83735; 83880; 84100; 84439; 84443; 84484; 85025; 85610; 87086; 93005; 93010; 93306-TC; 99285-25; G0378; J0131

== ENCOUNTER 2023-12-10 16:38 | Inpatient (IN) | payer OTHER ==
[2023-12-10 18:31] LABS: BASO % 1.5 % (0-2.0); EOS % 1.2 % (0-4.5); HEMATOCRIT 38.6 % (32.4-45.2); LYMPH % 10.8 % (8-40); MCH 32.3 pg (25.7-33.7); MCHC 33.7 g/dl (32.0-36.0); MEAN CELL VOLUME 95.9 fl (80-96); MEAN PLT VOLUME 8.5 fl (7.5-11.1); MONO % 7.9 % (3.8-10.2); NEUT % 78.6 % (42.8-82.8); PLATELET COUNT 340 10^3/uL (134-434); RBC 4.02 M/mm3 (3.60-5.2); RDW 13.3 % (11.6-15.6); WHITE BLOOD COUNT 10.1 K/mm3 (4.0-10.0)
[2023-12-10 18:38] LABS: INR 1.27 (0.83-1.09); PROTHROMBIN TIME (PATIENT) 14.7 SEC (9.7-13.0)
[2023-12-10 18:41] LABS: ACTIVATED PTT 27.3 SECONDS (25.2-36.5)
[2023-12-10 18:47] LABS: POTASSIUM 4.5 mmol/L (3.5-5.1)
[2023-12-10 18:48] LABS: CALCIUM 8.9 mg/dL (8.5-10.1)
[2023-12-10 18:49] LABS: BLOOD UREA NITROGEN 16.9 mg/dL (7-18)
[2023-12-10 18:51] LABS: ALBUMIN 2.9 g/dl (3.4-5.0)
[2023-12-10 18:54] LABS: BILIRUBIN,TOTAL 0.6 mg/dL (0.2-1)
[2023-12-10 18:56] LABS: TOT PROT 7.3 g/dl (6.4-8.2)
[2023-12-10 18:57] LABS: N-TERMINAL BNP 117.9 pg/ml (5-450)
[2023-12-10] MEDS ORDERED: ACETAMINOPHEN 325 MG TABLET (FP) ONE (19:10)
[2023-12-10] MEDS: ACETAMINOPHEN 325 MG TABLET (FP) PO ONE (19:19)
[2023-12-10 22:05] LABS: EPI CELLS >36 /uL (0-25.1); HYALINE CASTS 1 /uL (0-3.1); URINE APPEARANCE CLEAR; URINE BACTERIA 192 /uL (0-1359); URINE BILIRUBIN NEGATIVE (NEGATIVE); URINE COLOR YELLOW; URINE GLUCOSE (UA) NEGATIVE (NEGATIVE); URINE KETONE NEGATIVE (NEGATIVE); URINE LEUK ESTERASE 2+ (NEGATIVE); URINE NITRITE NEGATIVE (NEGATIVE); URINE PROTEIN NEGATIVE (NEGATIVE); URINE RBC 13 /uL (0-23.9); URINE WBC 18 /uL (0-25.8)
[2023-12-11] MEDS: ALPRAZolam 0.25 MG TABLET PO SCH ×2 (01:22→22:03)
[2023-12-11] MEDS ORDERED: ALPRAZolam 0.25 MG TABLET ONE (01:25)
[2023-12-11 05:23] VITALS: BMI 28.6
[2023-12-11 09:10] LABS: BASO % 0.3 % (0-2.0); EOS % 1.8 % (0-4.5); HEMOGLOBIN 11.8 GM/dL (10.7-15.3); LYMPH % 13.3 % (8-40); MCH 32.3 pg (25.7-33.7); MCHC 33.7 g/dl (32.0-36.0); MEAN CELL VOLUME 95.7 fl (80-96); MEAN PLT VOLUME 8.9 fl (7.5-11.1); MONO % 10.6 % (3.8-10.2); PLATELET COUNT 311 10^3/uL (134-434); RBC 3.66 M/mm3 (3.60-5.2); RDW 13.1 % (11.6-15.6); WHITE BLOOD COUNT 9.3 K/mm3 (4.0-10.0)
[2023-12-11] MEDS: ASPIRIN COATED 81 MG TABLET.EC PO SCH (09:13)
[2023-12-11] MEDS: amLODIPine BESYLATE 5 MG TABLET (FP) PO SCH (09:13)
[2023-12-11] MEDS: CLOPIDOGREL BISULFATE 75 MG TABLET (FP) PO SCH (09:13)
[2023-12-11] MEDS: ENOXAPARIN NA (PORCINE) 40 MG/0.4 ML DISP.SYRIN SQ SCH (09:13)
[2023-12-11] MEDS: HYDROCHLOROTHIAZIDE 12.5 MG CAPSULE (FP) PO SCH (09:13)
[2023-12-11] MEDS: CEFTRIAXONE 1 GM in DEXTROSE 5%-WATER - 50 ML IVPB SCH (09:14)
[2023-12-11] MEDS: metoPROLOL SUCCINATE 25 MG TAB.SR.24H (FP) PO SCH (09:14)
[2023-12-11] MEDS: PANTOPRAZOLE 40 MG TABLET PO SCH (09:14)
[2023-12-11 09:27] LABS: POTASSIUM 4.2 mmol/L (3.5-5.1)
[2023-12-11 09:31] LABS: ALBUMIN 2.8 g/dl (3.4-5.0); BLOOD UREA NITROGEN 13.4 mg/dL (7-18); CALCIUM 8.8 mg/dL (8.5-10.1); MAGNESIUM 1.8 mg/dL (1.8-2.4)
[2023-12-11 09:34] LABS: CREATININE 0.9 mg/dL (0.55-1.3); PHOSPHOROUS 3.6 mg/dL (2.5-4.9)
[2023-12-11 09:36] LABS: BILIRUBIN,TOTAL 0.8 mg/dL (0.2-1); TOT PROT 6.7 g/dl (6.4-8.2)
[2023-12-11] MEDS: VENLAFAXINE HCL 37.5 MG TABLET PO SCH (13:47)
[2023-12-11] MEDS: VENLAFAXINE HCL 37.5 MG E.R. CAPSULE PO SCH (14:21)
[2023-12-11] MEDS: ACETAMINOPHEN 325 MG TABLET (FP) PO PRN (18:21)
[2023-12-11] MEDS: METOPROLOL TARTRATE 25 MG TABLET (FP) PO SCH (22:03)
[2023-12-11] MEDS: ATORVASTATIN CA 40 MG TABLET (FP) PO SCH (22:03)
[2023-12-12 08:53] LABS: BASO % 0.3 % (0-2.0); EOS % 1.4 % (0-4.5); HEMATOCRIT 34.8 % (32.4-45.2); HEMOGLOBIN 11.6 GM/dL (10.7-15.3); LYMPH % 13.4 % (8-40); MCHC 33.4 g/dl (32.0-36.0); MEAN CELL VOLUME 95.8 fl (80-96); MEAN PLT VOLUME 8.5 fl (7.5-11.1); MONO % 7.7 % (3.8-10.2); NEUT % 77.2 % (42.8-82.8); PLATELET COUNT 351 10^3/uL (134-434); RBC 3.63 M/mm3 (3.60-5.2); RDW 13.2 % (11.6-15.6); WHITE BLOOD COUNT 9.7 K/mm3 (4.0-10.0)
[2023-12-12] MEDS: LACTOBACILLUS ACIDOPHILUS 1 TABLET PO SCH (09:11)
[2023-12-12] MEDS: FUROSEMIDE 20 MG TABLET (FP) PO SCH (09:11)
[2023-12-12] MEDS: POTASSIUM CHLORIDE TABS 10 MEQ TABLET.ER (FP) PO SCH (09:11)
[2023-12-12] MEDS: SODIUM BICARBONATE 325 MG TABLET PO SCH (09:12)
[2023-12-12 09:14] LABS: POTASSIUM 4.1 mmol/L (3.5-5.1)
[2023-12-12 09:21] LABS: BLOOD UREA NITROGEN 11.6 mg/dL (7-18); CALCIUM 9.4 mg/dL (8.5-10.1); MAGNESIUM 1.6 mg/dL (1.8-2.4)
[2023-12-12 09:24] LABS: CREATININE 0.9 mg/dL (0.55-1.3)
[2023-12-12] MEDS ORDERED: PANTOPRAZOLE 40 MG TABLET PO SCH (10:00)
[2023-12-12] MEDS: MAGNESIUM 1GM/D5W - 1 GM/100 ML IVPB IVPB ONE (13:54)
[2023-12-12] MEDS: LIDOCAINE 4% PATCH TP SCH (17:26)
[2023-12-12] MEDS: LIDOCAINE PATCH REMOVAL MC SCH (21:35)
[2023-12-13 08:49] LABS: BASO % 0.2 % (0-2.0); EOS % 3.4 % (0-4.5); HEMOGLOBIN 11.4 GM/dL (10.7-15.3); LYMPH % 14.3 % (8-40); MCH 31.7 pg (25.7-33.7); MCHC 33.5 g/dl (32.0-36.0); MEAN CELL VOLUME 94.7 fl (80-96); MEAN PLT VOLUME 8.6 fl (7.5-11.1); MONO % 9.8 % (3.8-10.2); NEUT % 72.3 % (42.8-82.8); PLATELET COUNT 349 10^3/uL (134-434); RBC 3.59 M/mm3 (3.60-5.2)
[2023-12-13 09:07] LABS: CALCIUM 9.2 mg/dL (8.5-10.1)
[2023-12-13 09:08] LABS: BLOOD UREA NITROGEN 13.5 mg/dL (7-18); MAGNESIUM 1.8 mg/dL (1.8-2.4)
[2023-12-13 09:11] LABS: CREATININE 0.9 mg/dL (0.55-1.3)
[2023-12-13] MEDS ORDERED: IOHEXOL (OMNIPAQUE PO) 12 MG/ML - 500 ML BOTTLE PO ONE (11:10)
[2023-12-13] MEDS: LIPASE/PROTEASE/AMYLASE 36,000 UNIT CAPSULE PO SCH (13:46)
[2023-12-13] MEDS: RIFAXIMIN 550 MG TABLET PO SCH (14:57)
[2023-12-14 08:33] LABS: BASO % 0.2 % (0-2.0); EOS % 2.4 % (0-4.5); HEMATOCRIT 34.8 % (32.4-45.2); HEMOGLOBIN 11.8 GM/dL (10.7-15.3); LYMPH % 16.2 % (8-40); MCH 32.3 pg (25.7-33.7); MEAN PLT VOLUME 8.4 fl (7.5-11.1); MONO % 9.2 % (3.8-10.2); PLATELET COUNT 361 10^3/uL (134-434); RBC 3.66 M/mm3 (3.60-5.2); RDW 12.9 % (11.6-15.6); WHITE BLOOD COUNT 8.2 K/mm3 (4.0-10.0)
[2023-12-14 09:32] LABS: POTASSIUM 4.4 mmol/L (3.5-5.1)
[2023-12-14 09:33] LABS: ALBUMIN 2.6 g/dl (3.4-5.0); BLOOD UREA NITROGEN 12.2 mg/dL (7-18); CALCIUM 9.1 mg/dL (8.5-10.1); CREATININE 0.9 mg/dL (0.55-1.3); MAGNESIUM 1.8 mg/dL (1.8-2.4)
[2023-12-14 09:34] LABS: BILIRUBIN,TOTAL 0.5 mg/dL (0.2-1); TOT PROT 6.7 g/dl (6.4-8.2)
[2023-12-15 09:47] LABS: BASO % 0.4 % (0-2.0); EOS % 3.3 % (0-4.5); HEMATOCRIT 37.4 % (32.4-45.2); HEMOGLOBIN 12.6 GM/dL (10.7-15.3); LYMPH % 19.9 % (8-40); MCH 31.8 pg (25.7-33.7); MCHC 33.7 g/dl (32.0-36.0); MEAN CELL VOLUME 94.4 fl (80-96); MEAN PLT VOLUME 8.4 fl (7.5-11.1); MONO % 10.1 % (3.8-10.2); NEUT % 66.3 % (42.8-82.8); PLATELET COUNT 424 10^3/uL (134-434); RBC 3.96 M/mm3 (3.60-5.2); RDW 13.2 % (11.6-15.6); WHITE BLOOD COUNT 7.4 K/mm3 (4.0-10.0)
[2023-12-15 10:18] LABS: POTASSIUM 3.9 mmol/L (3.5-5.1)
[2023-12-15 10:34] LABS: CALCIUM 9.4 mg/dL (8.5-10.1)
[2023-12-15 10:35] LABS: ALBUMIN 2.8 g/dl (3.4-5.0); BLOOD UREA NITROGEN 15.3 mg/dL (7-18); MAGNESIUM 1.9 mg/dL (1.8-2.4)
[2023-12-15 10:37] LABS: BILIRUBIN,TOTAL 0.5 mg/dL (0.2-1)
[2023-12-15 10:38] LABS: CREATININE 0.9 mg/dL (0.55-1.3)
[2023-12-15 10:39] LABS: TOT PROT 7.3 g/dl (6.4-8.2)
[2023-12-16 08:06] LABS: BASO % 0.3 % (0-2.0); HEMOGLOBIN 12.2 GM/dL (10.7-15.3); LYMPH % 21.5 % (8-40); MCH 32.6 pg (25.7-33.7); MCHC 34.8 g/dl (32.0-36.0); MEAN CELL VOLUME 93.9 fl (80-96); MEAN PLT VOLUME 8.3 fl (7.5-11.1); MONO % 9.2 % (3.8-10.2); PLATELET COUNT 416 10^3/uL (134-434); RBC 3.73 M/mm3 (3.60-5.2); WHITE BLOOD COUNT 7.4 K/mm3 (4.0-10.0)
[2023-12-16 08:07] LABS: POTASSIUM 3.9 mmol/L (3.5-5.1)
[2023-12-16 08:13] LABS: ALBUMIN 2.7 g/dl (3.4-5.0); BLOOD UREA NITROGEN 16.8 mg/dL (7-18)
[2023-12-16 08:15] LABS: BILIRUBIN,TOTAL 0.5 mg/dL (0.2-1); CALCIUM 8.8 mg/dL (8.5-10.1)
[2023-12-16 08:16] LABS: CREATININE 0.9 mg/dL (0.55-1.3); MAGNESIUM 1.8 mg/dL (1.8-2.4)
[2023-12-16] MEDS: ACETAMINOPHEN 325 MG TABLET (FP) PO SCH (11:25)
[2023-12-16] MEDS: METHYL SALICYLATE/MENTHOL OINT 30 GM TUBE TP SCH (11:26)
[2023-12-17 09:52] LABS: BASO % 0.4 % (0-2.0); EOS % 4.4 % (0-4.5); HEMATOCRIT 36.6 % (32.4-45.2); HEMOGLOBIN 12.4 GM/dL (10.7-15.3); LYMPH % 20.5 % (8-40); MCH 31.7 pg (25.7-33.7); MCHC 33.9 g/dl (32.0-36.0); MEAN CELL VOLUME 93.6 fl (80-96); MEAN PLT VOLUME 8.3 fl (7.5-11.1); MONO % 9.3 % (3.8-10.2); NEUT % 65.4 % (42.8-82.8); PLATELET COUNT 436 10^3/uL (134-434); RBC 3.91 M/mm3 (3.60-5.2); RDW 12.9 % (11.6-15.6); WHITE BLOOD COUNT 7.1 K/mm3 (4.0-10.0)
[2023-12-17 10:10] LABS: POTASSIUM 3.7 mmol/L (3.5-5.1)
[2023-12-17 10:15] LABS: BLOOD UREA NITROGEN 16.6 mg/dL (7-18); CALCIUM 9.4 mg/dL (8.5-10.1); MAGNESIUM 1.9 mg/dL (1.8-2.4)
[2023-12-17 10:16] LABS: ALBUMIN 2.9 g/dl (3.4-5.0)
[2023-12-17 10:18] LABS: CREATININE 0.9 mg/dL (0.55-1.3)
[2023-12-17 10:20] LABS: BILIRUBIN,TOTAL 0.4 mg/dL (0.2-1); TOT PROT 7.4 g/dl (6.4-8.2)
[2023-12-18 08:32] LABS: BASO % 0.6 % (0-2.0); HEMATOCRIT 35.3 % (32.4-45.2); HEMOGLOBIN 12.2 GM/dL (10.7-15.3); LYMPH % 22.5 % (8-40); MCH 32.3 pg (25.7-33.7); MCHC 34.7 g/dl (32.0-36.0); MEAN CELL VOLUME 93.1 fl (80-96); MEAN PLT VOLUME 8.4 fl (7.5-11.1); MONO % 8.5 % (3.8-10.2); NEUT % 62.4 % (42.8-82.8); PLATELET COUNT 395 10^3/uL (134-434); RDW 13.1 % (11.6-15.6); WHITE BLOOD COUNT 6.7 K/mm3 (4.0-10.0)
[2023-12-18 09:05] LABS: POTASSIUM 3.6 mmol/L (3.5-5.1)
[2023-12-18 09:08] LABS: ALBUMIN 2.8 g/dl (3.4-5.0); MAGNESIUM 1.7 mg/dL (1.8-2.4)
[2023-12-18 09:09] LABS: CALCIUM 9.1 mg/dL (8.5-10.1)
[2023-12-18 09:11] LABS: CREATININE 0.9 mg/dL (0.55-1.3)
[2023-12-18 09:12] LABS: BILIRUBIN,TOTAL 0.3 mg/dL (0.2-1)
[2023-12-18] MEDS ORDERED: INSULIN (NOVOLOG) ASPART 100 UNITS/ML 10ML VIAL ONE (18:25)
[2023-12-19] MEDS: MAGNESIUM OXIDE 400 MG TABLET (FP) PO ONE (12:36)
[2023-12-20 16:44] VITALS: BP 122/62; PULSE 67; RESP 20; TEMP 98.2
== END 2023-12-20 16:46 | DRG 947 ==
LOC: JER 16:38 → JERBED 20:31 → J8W 12-11 04:09
PROVIDERS: ADMIT Internal Medicine; ATTEND Nurse Practitioner Family
DX: R53.81 Other malaise (principal); I21.4 Non-ST elevation (NSTEMI) myocardial infarction; K76.89 Other specified diseases of liver; F41.9 Anxiety disorder, unspecified; I10 Essential (primary) hypertension; E78.5 Hyperlipidemia, unspecified; R06.02 Shortness of breath; E83.42 Hypomagnesemia; R14.0 Abdominal distension (gaseous); K21.9 Gastro-esophageal reflux disease without esophagitis; M25.511 Pain in right shoulder
CPT/HCPCS: 0241U-QW; 36415; 71045-TC-FY; 73030-TC-RT-FY; 74178-TC; 74183-TC; 76705-TC; 80048; 80053; 81003; 82105; 82977; 83735; 83880; 84100; 84484; 85025; 85610; 85730; 86707; 86708; 86709; 87086; 87340; 87350; 87517; 87522; 87635; 93005; 93010; 97116-GP; 97162-GP; 99285-25; Q9967

== ENCOUNTER 2024-01-31 02:33 | Emergency (ER) | payer OTHER ==
[2024-01-31 02:40] VITALS: BP 133/80; PULSE 81; RESP 17; TEMP 97.6; BMI 28.3
== END 2024-01-31 03:16 | disposition home or self-care (01) ==
LOC: JER 02:33
DX: M25.471 Effusion, right ankle (principal); M25.472 Effusion, left ankle
CPT/HCPCS: 99283-25

== ENCOUNTER 2024-03-15 14:13 | Observation (INO) | payer OTHER ==
[2024-03-15] MEDS ORDERED: ACETAMINOPHEN INJECTION 100 ML IVPB ONE (16:08)
[2024-03-15] MEDS ORDERED: LIDOCAINE 4% PATCH TP ONE (16:09)
[2024-03-15 16:12] LABS: BASO % 0.7 % (0-2.0); EOS % 1.9 % (0-4.5); HEMATOCRIT 39.1 % (32.4-45.2); HEMOGLOBIN 13.3 GM/dL (10.7-15.3); LYMPH % 22.6 % (8-40); MCH 32.1 pg (25.7-33.7); MEAN CELL VOLUME 94.5 fl (80-96); MEAN PLT VOLUME 8.9 fl (7.5-11.1); MONO % 8.5 % (3.8-10.2); NEUT % 66.3 % (42.8-82.8); PLATELET COUNT 218 10^3/uL (134-434); RBC 4.14 M/mm3 (3.60-5.2); RDW 15.3 % (11.6-15.6); WHITE BLOOD COUNT 8.2 K/mm3 (4.0-10.0)
[2024-03-15] MEDS: LIDOCAINE 4% PATCH TP ONE (16:17)
[2024-03-15] MEDS: ACETAMINOPHEN 1000 MG/100 ML BAG IVPB ONE (16:17)
[2024-03-15 16:41] LABS: CHLORIDE 106 mmol/L (98-107); POTASSIUM 4.4 mmol/L (3.5-5.1); SODIUM 143 mmol/L (136-145)
[2024-03-15 16:43] LABS: ALBUMIN 3.5 g/dl (3.4-5.0); ANION GAP 5 mmol/L (4-13); BLOOD UREA NITROGEN 16.7 mg/dL (7-18); CALCIUM 9.2 mg/dL (8.5-10.1); CO2 32 mmol/L (21-32); GLUCOSE,RANDOM 88 mg/dL (74-106); MAGNESIUM 2.1 mg/dL (1.8-2.4)
[2024-03-15 16:46] LABS: CREATININE 0.8 mg/dL (0.55-1.3); SGOT/AST 16 U/L (15-37); SGPT/ALT 19 U/L (13-61)
[2024-03-15 16:48] LABS: BILIRUBIN,TOTAL 0.6 mg/dL (0.2-1); TOT PROT 7.2 g/dl (6.4-8.2)
[2024-03-15 16:49] LABS: ALK PHOS 84 U/L (45-117)
[2024-03-15 16:53] LABS: ACTIVATED PTT 28.6 SECONDS (25.2-36.5); INR 1.03 (0.83-1.09); PROTHROMBIN TIME (PATIENT) 11.6 SEC (9.7-13.0)
[2024-03-15 17:05] LABS: EPI CELLS >36 /uL (0-25.1); HYALINE CASTS 2 /uL (0-3.1); URINE APPEARANCE CLEAR; URINE BACTERIA 107 /uL (0-1359); URINE BILIRUBIN NEGATIVE (NEGATIVE); URINE COLOR YELLOW; URINE GLUCOSE (UA) NEGATIVE (NEGATIVE); URINE KETONE TRACE (NEGATIVE); URINE LEUK ESTERASE TRACE (NEGATIVE); URINE NITRITE NEGATIVE (NEGATIVE); URINE PROTEIN NEGATIVE (NEGATIVE); URINE RBC 8 /uL (0-23.9); URINE WBC 20 /uL (0-25.8)
[2024-03-15 19:48] VITALS: RESP 18
[2024-03-15] MEDS: ALPRAZolam 0.25 MG TABLET PO SCH (22:10)
[2024-03-15] MEDS: LIDOCAINE PATCH REMOVAL MC SCH (22:10)
[2024-03-15] MEDS: ATORVASTATIN CA 40 MG TABLET (FP) PO SCH (22:10)
[2024-03-15] MEDS: METOPROLOL TARTRATE 25 MG TABLET (FP) PO SCH (22:10)
[2024-03-16 07:57] LABS: BASO % 0.6 % (0-2.0); EOS % 2.2 % (0-4.5); HEMATOCRIT 40.8 % (32.4-45.2); HEMOGLOBIN 13.5 GM/dL (10.7-15.3); LYMPH % 28.2 % (8-40); MCH 31.6 pg (25.7-33.7); MCHC 33.2 g/dl (32.0-36.0); MEAN CELL VOLUME 95.2 fl (80-96); MEAN PLT VOLUME 8.7 fl (7.5-11.1); MONO % 6.5 % (3.8-10.2); NEUT % 62.5 % (42.8-82.8); PLATELET COUNT 227 10^3/uL (134-434); RBC 4.28 M/mm3 (3.60-5.2); RDW 15.3 % (11.6-15.6); WHITE BLOOD COUNT 6.4 K/mm3 (4.0-10.0)
[2024-03-16] MEDS ORDERED: HYDROCHLOROTHIAZIDE 12.5 MG CAPSULE (FP) PO SCH (10:00)
[2024-03-16] MEDS ORDERED: amLODIPine BESYLATE 5 MG TABLET (FP) PO SCH (10:00)
[2024-03-16] MEDS: CLOPIDOGREL BISULFATE 75 MG TABLET (FP) PO SCH (10:01)
[2024-03-16] MEDS: LACTOBACILLUS ACIDOPHILUS 1 TABLET PO SCH (10:01)
[2024-03-16] MEDS: ASPIRIN COATED 81 MG TABLET.EC PO SCH (10:01)
[2024-03-16] MEDS: FUROSEMIDE 20 MG TABLET (FP) PO SCH (10:02)
[2024-03-16] MEDS: PANTOPRAZOLE 40 MG TABLET PO SCH (10:02)
[2024-03-16] MEDS: VENLAFAXINE HCL 37.5 MG E.R. CAPSULE PO SCH (10:02)
[2024-03-16] MEDS: METOPROLOL TARTRATE 25 MG TABLET (FP) PO SCH (11:59)
[2024-03-16] MEDS: MAG HYDROX/AL HYDROX/SIMETH 30 ML UNIT-DOSE CUP PO ONE (23:09)
[2024-03-16] MEDS: LIDOCAINE 5% TOPICAL PATCH TP ONE (23:09)
[2024-03-16] MEDS: LIDOCAINE PATCH REMOVAL MC SCH (23:10)
[2024-03-17 07:20] LABS: HEMATOCRIT 37.2 % (32.4-45.2); HEMOGLOBIN 12.8 GM/dL (10.7-15.3); MCH 32.2 pg (25.7-33.7); MCHC 34.3 g/dl (32.0-36.0); MEAN CELL VOLUME 93.7 fl (80-96); PLATELET COUNT 194 10^3/uL (134-434); RBC 3.97 M/mm3 (3.60-5.2); WHITE BLOOD COUNT 7.8 K/mm3 (4.0-10.0)
[2024-03-17 07:32] LABS: POTASSIUM 3.9 mmol/L (3.5-5.1)
[2024-03-17 07:35] LABS: ALBUMIN 3.4 g/dl (3.4-5.0); BLOOD UREA NITROGEN 17.4 mg/dL (7-18); CALCIUM 9.3 mg/dL (8.5-10.1)
[2024-03-17 07:39] LABS: CREATININE 0.9 mg/dL (0.55-1.3)
[2024-03-17 07:41] LABS: BILIRUBIN,TOTAL 0.5 mg/dL (0.2-1); TOT PROT 6.6 g/dl (6.4-8.2)
[2024-03-17] MEDS ORDERED: PANTOPRAZOLE 40 MG TABLET PO ONE (10:45)
[2024-03-17 14:28] VITALS: BP 123/60; PULSE 65; TEMP 97.3
== END 2024-03-17 17:22 | disposition home or self-care (01) ==
LOC: JER 14:13 → JERBED 18:53 → J4W 20:44
PROVIDERS: ADMIT Internal Medicine; ATTEND Internal Medicine
PROC: 3E033NZ Introduction of Analgesics, Hypnotics, Sedatives into Peripheral Vein, Percutaneous Approach (ICD-10-PCS; principal; 2024-03-15)
DX: R61 Generalized hyperhidrosis (principal); I25.10 Atherosclerotic heart disease of native coronary artery without angina pectoris; E78.5 Hyperlipidemia, unspecified; I11.9 Hypertensive heart disease without heart failure; M54.9 Dorsalgia, unspecified; G89.29 Other chronic pain; F32.A Depression, unspecified; K21.9 Gastro-esophageal reflux disease without esophagitis; E66.9 Obesity, unspecified; I21.3 ST elevation (STEMI) myocardial infarction of unspecified site; M19.90 Unspecified osteoarthritis, unspecified site; Z95.5 Presence of coronary angioplasty implant and graft
CPT/HCPCS: 0241U-QW; 36415; 71045-TC-FY; 74174-TC; 80053; 81003; 82550; 83735; 84439; 84443; 84484; 85025; 85027; 85610; 85730; 86140; 87086; 93005; 93010; 93306-TC; 96374; 99285-25; G0378; J0131

== ENCOUNTER 2024-03-30 06:28 | Day surgery (SDC) | payer OTHER ==
[2024-03-28 13:59] VITALS: BMI 27.4
[~2024-03-30 06:28] MED LIST: ACETAMINOPHEN 500 MG TABLET (FP) PO PRN
[2024-03-30] MEDS ORDERED: LIDOCAINE HCL/PF 1% SDV 5ML VIAL ONE (07:14)
[2024-03-30] MEDS ORDERED: LIDOCAINE HCL/PF 2% SDV 5ML VIAL ONE (07:14)
[2024-03-30] MEDS ORDERED: BUPIVACAINE HCL/PF 0.75% 10 ML VIAL ONE (07:14)
[2024-03-30] MEDS: LIDOCAINE HCL 1% PRESERVATIVE FREE - 30ML VIAL IJ ONE (11:53)
[2024-03-30] MEDS: BUPIVACAINE HCL/PF 0.75% 10 ML VIAL NR ONE (11:54)
[2024-03-30] MEDS: LIDOCAINE HCL/PF 2% SDV 5ML VIAL INF ONE (11:54)
[2024-03-30] MEDS: DEXAMETHASONE SOD PHOSPHATE 10 MG/1 ML VIAL IVPUSH ONE (11:55)
[2024-03-30 12:21] VITALS: RESP 18
[2024-03-30 13:26] VITALS: BP 125/65; PULSE 60; TEMP 98.8
== END 2024-03-30 13:55 | disposition home or self-care (01) ==
LOC: JASU-SURG 06:28
PROVIDERS: ATTEND Pain Medicine Pain Medicine
PROC: 015B3ZZ Destruction of Lumbar Nerve, Percutaneous Approach (ICD-10-PCS; principal; 2024-03-30 11:15)
DX: M47.816 Spondylosis without myelopathy or radiculopathy, lumbar region (principal)
CPT/HCPCS: 76000-TC-FY; J1100

== ENCOUNTER 2024-05-05 04:46 | Day surgery (SDC) | payer OTHER ==
[2024-05-04 17:47] VITALS: BMI 27.3
[2024-05-05] MEDS ORDERED: TRIAMCINOLONE ACET 40MG/1ML VIAL ONE (07:38)
[2024-05-05] MEDS ORDERED: BUPIVACAINE HCL/PF 0.5% (5MG/ML) 10 ML VIAL ONE ×2 (07:38→07:39)
[2024-05-05] MEDS ORDERED: LIDOCAINE HCL/PF 1% SDV 5ML VIAL ONE (07:39)
[2024-05-05 13:09] VITALS: TEMP 98
[2024-05-05 13:39] VITALS: BP 110/54; PULSE 62; RESP 18
== END 2024-05-05 14:15 | disposition home or self-care (01) ==
LOC: JASU-SURG 04:46
PROVIDERS: ATTEND Pain Medicine Pain Medicine
PROC: 3E0U3BZ Introduction of Anesthetic Agent into Joints, Percutaneous Approach (ICD-10-PCS; 2024-05-05)
PROC: 3E0U33Z Introduction of Anti-inflammatory into Joints, Percutaneous Approach (ICD-10-PCS; principal; 2024-05-05 12:41)
DX: M53.3 Sacrococcygeal disorders, not elsewhere classified (principal)
CPT/HCPCS: 76000-TC-FY

== ENCOUNTER 2024-11-21 18:05 | Observation (INO) | payer OTHER ==
[2024-11-21] MEDS ORDERED: ALPRAZolam 1 MG TABLET PO PRN (19:32)
[2024-11-21] MEDS ORDERED: ALPRAZolam 0.25 MG TABLET ONE (19:44)
[2024-11-21] MEDS ORDERED: GABAPENTIN 300 MG CAPSULE ONE (19:44)
[2024-11-21] MEDS ORDERED: ACETAMINOPHEN 325 MG TABLET (FP) ONE (19:44)
[2024-11-21] MEDS: ACETAMINOPHEN 500 MG TABLET (FP) PO ONE (19:45)
[2024-11-21] MEDS: ALPRAZolam 1 MG TABLET PO ONE (19:45)
[2024-11-21] MEDS: GABAPENTIN 300 MG CAPSULE PO ONE (19:46)
[2024-11-22 00:27] LABS: ABSOLUTE IMMATURE GRANULOCYTES 0.02 x10^3/uL (0.0-0.031); BASOPHILS # 0.05 x10^3/uL (0.01-0.08); EOSINOPHIL % 0.1 % (0.7-5.8); EOSINOPHILS # 0.01 x10^3/uL (0.04-0.36); HEMATOCRIT 40.2 % (34.1-44.9); HEMOGLOBIN 12.9 g/dL (11.2-15.7); MCHC 32.1 g/dl (32.2-35.5); MEAN CELL VOLUME 95.9 fl (79.4-94.8); MEAN PLT VOLUME 10.8 fl (9.4-12.3); MONOCYTE # 0.65 x10^3/uL (0.24-0.86); MONOCYTE % 6.8 % (4.7-12.5); PLATELET COUNT 156 x10^3/uL (182-369); RDW 13.4 % (12.5-17.0)
[2024-11-22 00:52] LABS: ALBUMIN 3.6 g/dl (3.4-5.0); CALCIUM 9.6 mg/dL (8.5-10.1)
[2024-11-22 00:55] LABS: CREATININE 0.8 mg/dL (0.55-1.3)
[2024-11-22 00:57] LABS: BILIRUBIN,TOTAL 0.7 mg/dL (0.2-1); TOT PROT 7.1 g/dl (6.4-8.2)
[2024-11-22] MEDS: LIDOCAINE 5% TOPICAL PATCH TP SCH (02:28)
[2024-11-22 03:01] VITALS: RESP 18; BMI 30.3
[2024-11-22] MEDS: traMADol HCL 50 MG TABLET PO PRN (03:03)
[2024-11-22] MEDS ORDERED: POTASSIUM CHLORIDE TABS 10 MEQ TABLET.ER (FP) PO PRN (05:17)
[2024-11-22] MEDS ORDERED: FUROSEMIDE 20 MG TABLET (FP) PO PRN (05:17)
[2024-11-22] MEDS: ACETAMINOPHEN 500 MG TABLET (FP) PO SCH (06:04)
[2024-11-22] MEDS: LEVOTHYROXINE NA 25 MCG TABLET (FP) PO SCH (06:28)
[2024-11-22] MEDS: PANTOPRAZOLE 40 MG TABLET PO SCH (06:28)
[2024-11-22] MEDS: metoPROLOL SUCCINATE 25 MG TAB.SR.24H (FP) PO SCH (09:05)
[2024-11-22] MEDS: CLOPIDOGREL BISULFATE 75 MG TABLET (FP) PO SCH (09:05)
[2024-11-22] MEDS: LIDOCAINE PATCH REMOVAL MC ONE (09:06)
[2024-11-22] MEDS: GABAPENTIN 300 MG CAPSULE PO SCH (09:06)
[2024-11-22] MEDS: VENLAFAXINE HCL 37.5 MG E.R. CAPSULE PO SCH (09:06)
[2024-11-22] MEDS: ASPIRIN COATED 81 MG TABLET.EC PO SCH (09:06)
[2024-11-22] MEDS: ALPRAZolam 0.25 MG TABLET PO SCH (09:06)
[2024-11-22] MEDS: LIDOCAINE PATCH REMOVAL MC SCH (21:51)
[2024-11-22] MEDS: ATORVASTATIN CA 40 MG TABLET (FP) PO SCH (21:51)
[2024-11-22] MEDS ORDERED: LIDOCAINE PATCH REMOVAL MC SCH (22:00)
[2024-11-23 09:55] LABS: HEMATOCRIT 40.5 % (34.1-44.9); HEMOGLOBIN 12.8 g/dL (11.2-15.7); MCHC 31.6 g/dl (32.2-35.5); MEAN CELL VOLUME 97.6 fl (79.4-94.8); MEAN PLT VOLUME 11.7 fl (9.4-12.3); PLATELET COUNT 178 x10^3/uL (182-369); RDW 14.1 % (12.5-17.0)
[2024-11-23 10:14] LABS: POTASSIUM 3.9 mmol/L (3.5-5.1)
[2024-11-23 10:23] LABS: BLOOD UREA NITROGEN 18.1 mg/dL (7-18)
[2024-11-23 10:24] LABS: ALBUMIN 3.2 g/dl (3.4-5.0); MAGNESIUM 1.9 mg/dL (1.8-2.4)
[2024-11-23 10:27] LABS: CREATININE 0.9 mg/dL (0.55-1.3); PHOSPHOROUS 3.5 mg/dL (2.5-4.9)
[2024-11-23 10:28] LABS: BILIRUBIN,TOTAL 0.8 mg/dL (0.2-1)
[2024-11-23 10:29] LABS: TOT PROT 6.6 g/dl (6.4-8.2)
[2024-11-24] MEDS ORDERED: SENNOSIDES 8.8 MG/5 ML SYRUP PO PRN (10:49)
[2024-11-24] MEDS: POLYETHYLENE GLYCOL (HEALTHYLAX) 3350 17 GM PACKET PO SCH (11:38)
[2024-11-26] MEDS: traZODone HCL 50 MG TABLET (FP) PO ONE (00:36)
[2024-11-27] MEDS: KETOROLAC TROMETHAMINE 15 MG/ML VIAL IVPUSH ONE (02:24)
[2024-11-27] MEDS: FAMOTIDINE 20 MG TABLET PO PRN (10:37)
[2024-11-27 14:22] VITALS: BP 121/67; PULSE 67; TEMP 97.7
[2024-11-27] MEDS: CELECOXIB 100 MG CAPSULE PO SCH (17:28)
== END 2024-11-27 19:00 ==
LOC: JER 18:05 → JERBED 23:27 → J6S 11-22 02:15
PROVIDERS: ADMIT Internal Medicine; ATTEND Internal Medicine
PROC: 3E0333Z Introduction of Anti-inflammatory into Peripheral Vein, Percutaneous Approach (ICD-10-PCS; principal; 2024-11-21)
DX: R07.81 Pleurodynia (principal); I11.9 Hypertensive heart disease without heart failure; I25.2 Old myocardial infarction; F41.9 Anxiety disorder, unspecified; K21.9 Gastro-esophageal reflux disease without esophagitis; W18.39XA Other fall on same level, initial encounter; Y93.89 Activity, other specified; Y92.008 Other place in unspecified non-institutional (private) residence as the place of occurrence of the external cause; G89.29 Other chronic pain; M54.9 Dorsalgia, unspecified; M19.90 Unspecified osteoarthritis, unspecified site; K76.89 Other specified diseases of liver; E03.9 Hypothyroidism, unspecified
CPT/HCPCS: 36415; 71046-TC-FY; 71101-TC-RT-FY; 73130-TC-RT-FY; 80053; 83735; 84100; 85025; 85027; 93005; 93010; 94010; 96374; 97116-GP; 97162-GP; 99285-25; G0378

== ENCOUNTER 2024-12-27 09:08 | Observation (INO) | payer OTHER ==
[2024-12-27] MEDS ORDERED: MAG HYDROX/AL HYDROX/SIMETH 30 ML UNIT-DOSE CUP ONE (09:28)
[2024-12-27] MEDS ORDERED: ONDANSETRON 4 MG/2 ML VIAL ONE (09:28)
[2024-12-27] MEDS ORDERED: FAMOTIDINE 20 MG/50 ML IVPB 20 MG/50 ML MG IVPB ONE (09:28)
[2024-12-27] MEDS: FAMOTIDINE 20 MG/50 ML IVPB 20 MG in PREMIX 50 IVPB ONE (09:47)
[2024-12-27] MEDS: SUCRALFATE 1 GM/10 ML UNIT DOSE CUPS PO SCH (09:47)
[2024-12-27] MEDS: ONDANSETRON 4 MG/2 ML VIAL IVPB ONE (09:48)
[2024-12-27] MEDS: ONDANSETRON 4 MG TABLET PO ONE (09:48)
[2024-12-27 09:57] LABS: ABSOLUTE IMMATURE GRANULOCYTES 0.01 x10^3/uL (0.0-0.031); BASOPHILS # 0.02 x10^3/uL (0.01-0.08); EOSINOPHIL % 0.4 % (0.7-5.8); EOSINOPHILS # 0.03 x10^3/uL (0.04-0.36); HEMATOCRIT 38.6 % (34.1-44.9); HEMOGLOBIN 12.7 g/dL (11.2-15.7); MCHC 32.9 g/dl (32.2-35.5); MEAN PLT VOLUME 9.9 fl (9.4-12.3); MONOCYTE # 0.54 x10^3/uL (0.24-0.86); PLATELET COUNT 256 x10^3/uL (182-369)
[2024-12-27 10:07] LABS: ALBUMIN 4.4 g/dl (3.4-5.0); CALCIUM 9.7 mg/dl (8.5-10.1); CREATININE 0.8 mg/dl (0.6-1.3); POTASSIUM 3.8 mmol/L (3.5-5.1); TOT PROT 7.2 g/dl (6.4-8.2)
[2024-12-27 14:06] LABS: HIV INTERPRETATION NEGATIVE (NEGATIVE)
[2024-12-27 14:07] LABS: HCV DIAGNOSTIC IN-HOUSE W/RFLX NON-REACTIVE (NONREACTIVE)
[2024-12-27] MEDS ORDERED: ACETAMINOPHEN INJECTION 100 ML ONE (15:04)
[2024-12-27] MEDS: ACETAMINOPHEN 1000 MG/100 ML BAG IVPB ONE (15:11)
[2024-12-27] MEDS: morphine CARPU-JECT 2 MG/1 ML DISP.SYRIN IVPUSH ONE (15:11)
[2024-12-27] MEDS ORDERED: ASPIRIN 81 MG CHEWABLE TABLETS ONE (15:37)
[2024-12-27] MEDS: ASPIRIN 81 MG CHEWABLE TABLETS PO ONE (15:39)
[2024-12-27 17:40] VITALS: BMI 28.5
[2024-12-27] MEDS ORDERED: POTASSIUM CHLORIDE TABS 10 MEQ TABLET.ER (FP) PO PRN (20:56)
[2024-12-27] MEDS ORDERED: FUROSEMIDE 20 MG TABLET (FP) PO PRN (20:56)
[2024-12-27] MEDS: ALPRAZolam 0.25 MG TABLET PO SCH (21:14)
[2024-12-27] MEDS: ATORVASTATIN CA 40 MG TABLET (FP) PO SCH (21:16)
[2024-12-28] MEDS: LEVOTHYROXINE NA 25 MCG TABLET (FP) PO SCH (06:05)
[2024-12-28 07:47] LABS: ABSOLUTE IMMATURE GRANULOCYTES 0.01 x10^3/uL (0.0-0.031); BASOPHILS # 0.05 x10^3/uL (0.01-0.08); EOSINOPHIL % 3.1 % (0.7-5.8); HEMATOCRIT 38.5 % (34.1-44.9); HEMOGLOBIN 12.4 g/dL (11.2-15.7); MCHC 32.2 g/dl (32.2-35.5); MEAN CELL VOLUME 99.2 fl (79.4-94.8); MONOCYTE # 0.55 x10^3/uL (0.24-0.86); MONOCYTE % 8.5 % (4.7-12.5); PLATELET COUNT 213 x10^3/uL (182-369); RDW 14.3 % (12.5-17.0)
[2024-12-28] MEDS: VENLAFAXINE HCL 37.5 MG E.R. CAPSULE PO SCH (09:22)
[2024-12-28] MEDS: ASPIRIN COATED 81 MG TABLET.EC PO SCH (09:22)
[2024-12-28] MEDS: PANTOPRAZOLE SODIUM 40 MG VIAL IVPUSH SCH (10:55)
[2024-12-28] MEDS ORDERED: REFRIGERATED ANITBIOTICS ONE (13:46)
[2024-12-29] MEDS: ACETAMINOPHEN 1000 MG/100 ML BAG IVPB ONE (12:40)
[2024-12-30 08:22] LABS: ABSOLUTE IMMATURE GRANULOCYTES 0.01 x10^3/uL (0.0-0.031); BASOPHILS # 0.04 x10^3/uL (0.01-0.08); EOSINOPHIL % 5.3 % (0.7-5.8); EOSINOPHILS # 0.35 x10^3/uL (0.04-0.36); HEMATOCRIT 35.1 % (34.1-44.9); HEMOGLOBIN 11.5 g/dL (11.2-15.7); MCHC 32.8 g/dl (32.2-35.5); MEAN CELL VOLUME 98.9 fl (79.4-94.8); MEAN PLT VOLUME 10.9 fl (9.4-12.3); MONOCYTE # 0.54 x10^3/uL (0.24-0.86); MONOCYTE % 8.2 % (4.7-12.5); PLATELET COUNT 209 x10^3/uL (182-369); RDW 13.9 % (12.5-17.0)
[2024-12-30 08:54] LABS: ALBUMIN 3.5 g/dl (3.4-5.0); BILIRUBIN,TOTAL 0.7 mg/dl (0.2-1); CALCIUM 8.6 mg/dl (8.5-10.1); CREATININE 0.7 mg/dl (0.6-1.3); POTASSIUM 4.3 mmol/L (3.5-5.1); TOT PROT 5.8 g/dl (6.4-8.2)
[2024-12-30] MEDS: ACETAMINOPHEN 1000 MG/100 ML BAG IVPB PRN (17:09)
[2025-01-01] MEDS: LIDOCAINE 5% TOPICAL PATCH TP ONE (11:15)
[2025-01-01] MEDS: LIDOCAINE PATCH REMOVAL MC ONE (21:26)
[2025-01-02 02:19] VITALS: RESP 18
[2025-01-02 10:07] VITALS: TEMP 98
[2025-01-02 14:23] VITALS: BP 121/66; PULSE 72
[2025-01-02] MEDS: LIDOCAINE 5% TOPICAL PATCH TP SCH (15:25)
[2025-01-02] MEDS ORDERED: LIDOCAINE PATCH REMOVAL MC SCH (22:00)
== END 2025-01-02 14:33 | disposition home or self-care (01) ==
LOC: FER 09:08 → FM/S 15:37
PROVIDERS: ATTEND Internal Medicine
PROC: 3E033NZ Introduction of Analgesics, Hypnotics, Sedatives into Peripheral Vein, Percutaneous Approach (ICD-10-PCS; principal; 2024-12-27)
PROC: 3E033GC Introduction of Other Therapeutic Substance into Peripheral Vein, Percutaneous Approach (ICD-10-PCS; 2024-12-27)
DX: K76.0 Fatty (change of) liver, not elsewhere classified (principal); K57.90 Diverticulosis of intestine, part unspecified, without perforation or abscess without bleeding; R10.13 Epigastric pain; K21.9 Gastro-esophageal reflux disease without esophagitis; I25.2 Old myocardial infarction; R14.0 Abdominal distension (gaseous); E03.9 Hypothyroidism, unspecified; I11.9 Hypertensive heart disease without heart failure; E78.5 Hyperlipidemia, unspecified
CPT/HCPCS: 36415; 73200-TC-RT; 73700-TC-RT; 74177-TC; 76705-TC; 80053; 83690; 84484; 85025; 86803; 87389; 93005; 96365; 96375; 96376; 97116-GP; 97161-GP; 99285-25; G0378; J0131; Q9967

== ENCOUNTER 2025-01-18 14:56 | Observation (INO) | payer OTHER ==
[2025-01-18] MEDS ORDERED: ACETAMINOPHEN INJECTION 100 ML ONE (15:57)
[2025-01-18] MEDS ORDERED: FAMOTIDINE 20 MG/50 ML IVPB 20 MG/50 ML MG IVPB ONE (15:58)
[2025-01-18] MEDS ORDERED: MAG HYDROX/AL HYDROX/SIMETH 30 ML UNIT-DOSE CUP ONE (15:58)
[2025-01-18] MEDS: ACETAMINOPHEN 1000 MG/100 ML BAG IVPB ONE (16:28)
[2025-01-18] MEDS: MAG HYDROX/AL HYDROX/SIMETH 30 ML UNIT-DOSE CUP PO ONE (16:28)
[2025-01-18] MEDS: FAMOTIDINE 20 MG/50 ML IVPB 20 MG/50 ML MG IVPB ONE (16:28)
[2025-01-18 16:29] LABS: ABSOLUTE IMMATURE GRANULOCYTES 0.03 x10^3/uL (0.0-0.031); BASOPHILS # 0.03 x10^3/uL (0.01-0.08); EOSINOPHIL % 1.1 % (0.7-5.8); EOSINOPHILS # 0.08 x10^3/uL (0.04-0.36); HEMATOCRIT 41.1 % (34.1-44.9); HEMOGLOBIN 13.4 g/dL (11.2-15.7); MCHC 32.6 g/dl (32.2-35.5); MEAN CELL VOLUME 96.9 fl (79.4-94.8); MEAN PLT VOLUME 10.8 fl (9.4-12.3); MONOCYTE # 0.65 x10^3/uL (0.24-0.86); MONOCYTE % 8.6 % (4.7-12.5); PLATELET COUNT 206 x10^3/uL (182-369); RDW 13.3 % (12.5-17.0)
[2025-01-18 16:50] LABS: CALCIUM 9.9 mg/dL (8.5-10.1)
[2025-01-18 16:51] LABS: BLOOD UREA NITROGEN 14.3 mg/dL (7-18)
[2025-01-18 16:54] LABS: CREATININE 0.9 mg/dL (0.55-1.3)
[2025-01-18 16:55] LABS: BILIRUBIN,TOTAL 0.6 mg/dL (0.2-1); TOT PROT 7.2 g/dl (6.4-8.2)
[2025-01-18] MEDS ORDERED: LIDOCAINE VISCOUS 2% ORAL/TOP 15 ML UNIT-DOSE CUP ONE (16:58)
[2025-01-18] MEDS ORDERED: SUCRALFATE 1 GM TABLET (FP) ONE (16:58)
[2025-01-18] MEDS: LIDOCAINE VISCOUS 2% ORAL/TOP 15 ML UNIT-DOSE CUP MM ONE (17:03)
[2025-01-18] MEDS: SUCRALFATE 1 GM/10 ML UNIT DOSE CUPS PO ONE (17:04)
[2025-01-18 17:07] LABS: ALBUMIN 3.8 g/dl (3.4-5.0)
[2025-01-18] MEDS ORDERED: FUROSEMIDE 20 MG TABLET (FP) PO PRN (17:54)
[2025-01-18] MEDS ORDERED: ACETAMINOPHEN 500 MG TABLET (FP) PO PRN (17:56)
[2025-01-18] MEDS ORDERED: LIDOCAINE 5% TOPICAL PATCH ONE (17:57)
[2025-01-18] MEDS ORDERED: traMADol HCL 50 MG TABLET PO PRN (17:57)
[2025-01-18] MEDS ORDERED: LIDOCAINE VISCOUS 2% ORAL/TOP 15 ML UNIT-DOSE CUP MM PRN (18:04)
[2025-01-18] MEDS: SUCRALFATE 1 GM/10 ML UNIT DOSE CUPS PO SCH (19:55)
[2025-01-18] MEDS: MAG HYDROX/AL HYDROX/SIMETH 30 ML UNIT-DOSE CUP PO SCH (19:56)
[2025-01-18] MEDS: LIDOCAINE 5% TOPICAL PATCH TP ONE ×2 (20:07→20:08)
[2025-01-18] MEDS: SIMETHICONE 80 MG TAB.CHEW (FP) PO SCH (21:29)
[2025-01-18] MEDS: ATORVASTATIN CA 40 MG TABLET (FP) PO SCH (21:29)
[2025-01-18] MEDS: PANTOPRAZOLE 40 MG TABLET PO SCH (21:29)
[2025-01-18] MEDS: ALPRAZolam 0.25 MG TABLET PO SCH (21:29)
[2025-01-18] MEDS: HEPARIN NA (PORCINE) 5,000 UNITS/ML 1ML VIAL SQ SCH (21:29)
[2025-01-18 22:56] VITALS: BMI 24.5
[2025-01-19] MEDS: LEVOTHYROXINE NA 25 MCG TABLET (FP) PO SCH (06:31)
[2025-01-19] MEDS: LIDOCAINE PATCH REMOVAL MC SCH ×2 (08:28→21:30)
[2025-01-19 08:42] LABS: ABSOLUTE IMMATURE GRANULOCYTES 0.01 x10^3/uL (0.0-0.031); BASOPHILS # 0.04 x10^3/uL (0.01-0.08); EOSINOPHIL % 3.8 % (0.7-5.8); HEMATOCRIT 40.4 % (34.1-44.9); HEMOGLOBIN 12.8 g/dL (11.2-15.7); MCHC 31.7 g/dl (32.2-35.5); MEAN CELL VOLUME 99.3 fl (79.4-94.8); MEAN PLT VOLUME 11.5 fl (9.4-12.3); MONOCYTE # 0.49 x10^3/uL (0.24-0.86); MONOCYTE % 9.4 % (4.7-12.5); PLATELET COUNT 192 x10^3/uL (182-369); RDW 13.3 % (12.5-17.0)
[2025-01-19 09:03] LABS: POTASSIUM 4.1 mmol/L (3.5-5.1)
[2025-01-19 09:07] LABS: CALCIUM 9.5 mg/dL (8.5-10.1)
[2025-01-19 09:08] LABS: BLOOD UREA NITROGEN 9.4 mg/dL (7-18)
[2025-01-19 09:11] LABS: CREATININE 0.9 mg/dL (0.55-1.3)
[2025-01-19] MEDS: VENLAFAXINE HCL 37.5 MG E.R. CAPSULE PO SCH (09:44)
[2025-01-19] MEDS: PANTOPRAZOLE 40 MG TABLET PO SCH (09:47)
[2025-01-19] MEDS: LIDOCAINE 5% TOPICAL PATCH TP SCH (10:23)
[2025-01-20] MEDS: ASPIRIN 81 MG CHEWABLE TABLETS PO SCH (11:55)
[2025-01-22 10:23] VITALS: BP 137/73; PULSE 80; RESP 17; TEMP 97.3
== END 2025-01-22 11:40 | disposition home or self-care (01) ==
LOC: JER 14:56 → JERBED 17:11 → J8W 18:35
PROVIDERS: ADMIT Internal Medicine; ATTEND Nurse Practitioner Acute Care
PROC: 3E033NZ Introduction of Analgesics, Hypnotics, Sedatives into Peripheral Vein, Percutaneous Approach (ICD-10-PCS; principal; 2025-01-18)
PROC: 3E033GC Introduction of Other Therapeutic Substance into Peripheral Vein, Percutaneous Approach (ICD-10-PCS; 2025-01-18)
PROC: 3E023GC Introduction of Other Therapeutic Substance into Muscle, Percutaneous Approach (ICD-10-PCS; 2025-01-18)
DX: I50.30 Unspecified diastolic (congestive) heart failure (principal); R10.13 Epigastric pain; K57.90 Diverticulosis of intestine, part unspecified, without perforation or abscess without bleeding; E78.5 Hyperlipidemia, unspecified; I10 Essential (primary) hypertension; I25.2 Old myocardial infarction; K44.9 Diaphragmatic hernia without obstruction or gangrene; F41.8 Other specified anxiety disorders; K76.0 Fatty (change of) liver, not elsewhere classified
CPT/HCPCS: 36415; 71045-TC-FY; 80048; 80053; 82550; 83690; 84484; 85025; 93005; 93010; 96365; 96372; 96375; 99285-25; G0378

== ENCOUNTER 2025-02-09 06:54 | Day surgery (SDC) | payer OTHER ==
[2025-02-07 14:36] VITALS: BMI 27.1
[2025-02-09 10:47] VITALS: RESP 18; TEMP 97.8
[2025-02-09] MEDS: LIDOCAINE HCL 1% PRESERVATIVE FREE - 30ML VIAL IJ ONE (11:52)
[2025-02-09] MEDS: IOHEXOL 180 MG/1 ML ML IJ ONE (11:54)
[2025-02-09] MEDS: DEXAMETHASONE SOD PHOSPHATE 10 MG/1 ML VIAL IM ONE (11:56)
[2025-02-09 12:23] VITALS: BP 119/63; PULSE 69
[2025-02-09] MEDS ORDERED: ACETAMINOPHEN 500 MG TABLET (FP) PO PRN (15:58)
== END 2025-02-09 13:30 | disposition home or self-care (01) ==
LOC: JASU-SURG 06:54
PROVIDERS: ATTEND Pain Medicine Pain Medicine
PROC: 3E0R3BZ Introduction of Anesthetic Agent into Spinal Canal, Percutaneous Approach (ICD-10-PCS; 2025-02-09)
PROC: 3E0R33Z Introduction of Anti-inflammatory into Spinal Canal, Percutaneous Approach (ICD-10-PCS; principal; 2025-02-09 11:45)
DX: M54.16 Radiculopathy, lumbar region (principal)
CPT/HCPCS: 76000-TC-FY; J1100